=== PATIENT | female | born 1965 | race Caucasian/White ===

== ENCOUNTER → 2017-02-20 | Outpatient (CLI) | payer BC, SELFPAY | PROVIDERS: Family Provider Nurse Practitioner; Visit Provider Nurse Practitioner | DX: R00.2 Palpitations (principal) | CPT/HCPCS: 93225; 93226 ==

== ENCOUNTER → 2017-03-01 13:22 | Outpatient (CLI) | payer BC, SELFPAY ==
--- NOTE | 2017-03-01 | US_ITS ---
MM DIG MAMM DX UNILAT LT CAD, US BREAST LT COMPLETE COMPARISON: 02/01/2017, 01/30/2016, 07/13/2014 INDICATION: Follow-up abnormal mammogram ORDERING PHYSICIAN: Ignacio Glass MD PATIENT AGE: 51 years TECHNIQUE: Problem-solving views performed along with left breast ultrasound FINDINGS: Average fibroglandular tissue. Asymmetric density in the medial aspect of the left breast noted on a few of the images including spot compression view but is less discrete on the rolled views and overall not felt to be significantly changed compared to 07/13/2014 and 01/30/2016 probably related to asymmetric fibroglandular tissue. The lesion is not demonstrated in the orthogonal plane and is not identified by ultrasound. LEFT BREAST ULTRASOUND: No solid or cystic lesion evident. Small nodes are present in the axilla. IMPRESSION: Probably benign findings. Asymmetric density may correspond to asymmetric fibroglandular tissue. BI-RADS Category: 3 Benign Finding Short Term Follow-up RECOMMENDED FOLLOW-UP: 6M - 6 MONTH FOLLOW-UP (A letter has been sent to the patient regarding results of the study.)
== END ==
PROVIDERS: Family Provider Nurse Practitioner; PCP Family Medicine; Visit Provider Nurse Practitioner Obstetrics & Gynecology
DX: R92.2 Inconclusive mammogram (principal)
CPT/HCPCS: 19083; 76641; 77065

== ENCOUNTER → 2017-05-20 08:28 | Outpatient (CLI) | payer BC, SELFPAY ==
[2017-05-20 11:04] LABS: Blood Urea Nitrogen 16 mg/dL (7-18); Creatinine,Serum 0.72 mg/dL (0.55-1.02); Estimated Glomerular Filt Rate 86 ml/min (>60); GFR (African American) 104 ML/MIN (>60)
== END ==
PROVIDERS: Visit Provider Nurse Practitioner
DX: G44.52 New daily persistent headache (NDPH) (principal)
CPT/HCPCS: 36415; 82565; 84520

== ENCOUNTER → 2018-04-07 15:08 | Outpatient (POV) | payer BC, SELFPAY | PROVIDERS: Visit Provider Nurse Practitioner Acute Care | DX: Z00.00 Encounter for general adult medical examination without abnormal findings (principal) ==

== ENCOUNTER → 2018-05-08 09:31 | Outpatient (CLI) | payer BC, SELFPAY ==
[2018-05-08 11:14] LABS: Basophils % 0.8 % (0.1-2.0); Eosinophils # 0.2 K/mm3 (0.0-0.4); Eosinophils % 4.6 % (0.1-12.0); Hematocrit 44.7 % (37.0-47.0); Lymphocytes # 1.6 K/mm3 (0.7-4.5); Lymphocytes % 34.6 % (10-50); Mean Corpuscular HGB Conc 33.5 g/dL (31.8-35.4); Mean Corpuscular Volume 92.4 fl (81-99); Monocytes # 0.2 K/mm3 (0.1-1.0); Monocytes % 5.1 % (1.7-9.3); Neutrophils # 2.5 K/mm3 (1.8-7.8); Platelet Count 262 K/mm3 (142-424); Red Blood Count 4.83 M/mm3 (4.20-5.40); Red Cell Distribution Width 13.7 % (11.5-17.5); White Blood Count 4.6 K/mm3 (4.8-10.8)
[2018-05-08 11:28] LABS: Alanine Aminotransferase 29 U/L (12-78); Albumin Level 4.1 gm/dL (3.4-5.0); Albumin/Globulin Ratio 1.2 (1.1-1.8); Alkaline Phosphatase 92 U/L (46-116); Anion Gap 15.6 mEq/L (5-15); Aspartate Amino Transferase 25 U/L (15-37); Bilirubin,Total 0.5 mg/dL (0.2-1.0); Blood Urea Nitrogen 13 mg/dL (7-18); Calcium 10.2 mg/dL (8.5-10.1); Carbon Dioxide 29 mmol/L (21.0-32.0); Chloride 102 mmol/L (98-107); Chol/HDL Ratio 3.6 (1-3.5); Cholesterol 237 mg/dL (140-200); Creatinine,Serum 0.68 mg/dL (0.55-1.02); Estimated Glomerular Filt Rate 91 ml/min (>60); GFR (African American) 110 ML/MIN (>60); Globulin 3.3 gm/dl (1.3-3.2); Glucose 95 mg/dL (74-106); HDL Cholesterol 65 mg/dL (29-89); LDL Cholesterol 156 mg/dL (0-130); Potassium 3.6 mmoL/L (3.5-5.1); Sodium 143 mmol/L (136-145); Total Protein,Serum 7.4 gm/dL (6.4-8.2); Triglycerides 78 mg/dL (30-200); VLDL Cholesterol 16 mg/dL (0-40)
== END ==
PROVIDERS: Visit Provider Nurse Practitioner Obstetrics & Gynecology
DX: Z01.419 Encounter for gynecological examination (general) (routine) without abnormal findings (principal)
CPT/HCPCS: 36415; 80053; 80061; 85025

== ENCOUNTER → 2018-05-15 14:39 | Outpatient (CLI) | payer BC, SELFPAY | PROVIDERS: PCP Nurse Practitioner; Visit Provider Nurse Practitioner | DX: G47.33 Obstructive sleep apnea (adult) (pediatric) (principal); I10 Essential (primary) hypertension; R06.83 Snoring; G47.10 Hypersomnia, unspecified | CPT/HCPCS: 95806 ==

== ENCOUNTER → 2018-05-27 10:37 | Outpatient (CLI) | payer BC, SELFPAY ==
--- NOTE | 2018-05-27 10:38 | MM_ITS ---
MM Dig screening mamm BI w/CAD CAD Screening COMPARISON: Additional views left breast 03/01/2017 and digital mammograms with CAD 02/01/2017 INDICATION: There is no personal or family history of breast cancer TECHNIQUE: Standard CC and MLO images were obtained. R2 CAD reviewed. FINDINGS: Prominent diffuse somewhat heterogenic fibroglandular densities are seen throughout both breasts. There is a well-defined metallic device projecting over the upper inner quadrant left breast. There is no suspicious lesion and no suspicious microcalcifications. There are small nodes in both axilla. IMPRESSION: Moderate diffuse breast density with no suspicious lesion seen BI-RADS Category: 2 Benign Finding(s) RECOMMENDED FOLLOW-UP: 1YR - 1 YEAR FOLLOW-UP (A letter has been sent to the patient regarding results of the study.)
== END ==
PROVIDERS: PCP Family Medicine; Visit Provider Nurse Practitioner Obstetrics & Gynecology
DX: Z01.419 Encounter for gynecological examination (general) (routine) without abnormal findings (principal); Z12.31 Encounter for screening mammogram for malignant neoplasm of breast
CPT/HCPCS: 77067

== ENCOUNTER → 2019-01-09 08:33 | Outpatient (CLI) | payer BC, SELFPAY ==
--- NOTE | 2019-01-09 08:35 | US_ITS ---
PROCEDURE: US ABDOMEN COMPLETE CLINICAL INDICATION: luq pain Left upper quadrant pain COMPARISON: No exams were available for comparison FINDINGS: PANCREAS: Unremarkable. No obvious mass or abnormal fluid collection. No ductal dilatation LIVER: No focal liver lesions demonstrated. Homogeneous echogenicity. No intrahepatic biliary ductal dilatation evident. There is appropriate direction of blood flow within a non dilated portal vein RIGHT KIDNEY: Unremarkable. Normal size and echogenicity. No hydronephrosis LEFT KIDNEY: Unremarkable. Normal size and echogenicity. No hydronephrosis GALLBLADDER: No gallstones, gallbladder wall thickening, pericholecystic fluid, or biliary dilatation. Small amount of sludge is present in the gallbladder. AORTA: No evidence of aneurysmal dilatation. SPLEEN: Unremarkable. Normal size and echogenicity ASCITES: None demonstrated. IMPRESSION: Small amount of sludge in the gallbladder of questionable clinical significance otherwise negative Dictated by: Dilshad Cleveland MD 01/09/2019 18:17 Electronically signed by Dilshad Cleveland MD in [place] 01/09/2019 18:17
== END ==
PROVIDERS: PCP Nurse Practitioner; Visit Provider Nurse Practitioner
DX: R10.12 Left upper quadrant pain (principal)
CPT/HCPCS: 76700

== ENCOUNTER → 2019-02-03 10:28 | Outpatient (CLI) | payer BC, SELFPAY ==
--- NOTE | 2019-02-03 10:35 | NM_ITS ---
PROCEDURE: NM HEPATOBILIARY W PHARM CLINICAL INDICATION: SLUDGE IN GB Upper abdominal pain COMPARISON: None TECHNIQUE: Routine exam was performed after 8.75 millicuries technetium 99 M Choletec administration DOSE: . 1.2 mgc CCK administration FINDINGS: Homogeneous activity is present within the hepatic parenchyma. Activity is present in the gallbladder by 20 minutes. Activity is present in the small bowel by 50 minutes. The gallbladder ejection fraction is calculated to be 48 percent. CCK-The patient did not report pain or other symptoms during CCK infusion. IMPRESSION: Exam within normal limits. Gallbladder ejection fraction 48 percent. Dictated by: Juan Estrada 02/03/2019 14:41 Electronically signed by Juan Estrada in [place] 02/03/2019 14:41
--- NOTE | 2019-02-03 10:53 | HMH.ITSHM ---
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 []PLECANATIDE OMEPRAZOLE LISINOPRIL DIAZEPAM BISOPROLOL
== END ==
PROVIDERS: PCP Nurse Practitioner; Visit Provider Nurse Practitioner
DX: K82.8 Other specified diseases of gallbladder (principal)
CPT/HCPCS: 78227; A9537; J2805

== ENCOUNTER 2019-10-08 07:28 | Day surgery (SDC) | payer BC, SELFPAY ==
[2019-10-08 07:34] VITALS: BMI 22.1
[2019-10-08 07:51] VITALS: BP 131/82; PULSE 78; RESP 16; O2SAT 98
[2019-10-08 07:54] VITALS: PULSE 73
[2019-10-08 08:24] VITALS: BP 153/84; PULSE 68; RESP 16; TEMP 36.5; O2SAT 97
[2019-10-08 08:27] LABS: Coronavirus 19 IgM Antibody Negative (Negative)
[2019-10-08 08:29] LABS: Coronavirus 19 IgG Antibody Positive (Negative)
[2019-10-08 08:31] VITALS: PULSE 77
--- NOTE | 2019-10-15 10:29 | P.PCN_ITS ---
[facility] Procedure Note Procedure Note:: Due to the loop recorder at end-of-life, patient wish the device to be removed. Patient was brought to the [facility] as an outpatient. After locating the loop recorder, 1% lidocaine was used for anesthetizing the area. #10 scalpel was used to dissect down to the loop recorder and hemostats were used to remove the device successfully. The edges of the incision were approximated and surgical glue was used to maintain closure along with Steri-Strips and a pressure dressing. Patient tolerated procedure without complications. Routine postop care Patient will follow-up in our office in 1 week.
== END 2019-10-08 08:34 | disposition hospice, home (50) ==
LOC: CATHLAB 07:30
PROVIDERS: PCP Nurse Practitioner; Visit Provider Internal Medicine
DX: Z45.09 Encounter for adjustment and management of other cardiac device (principal)
CPT/HCPCS: 33286; 86328

== ENCOUNTER → 2020-02-22 14:19 | Outpatient (CLI) | payer BC, SELFPAY ==
[2020-02-22 15:09] LABS: Chloride 97 mmol/L (98-107)
[2020-02-22 15:10] LABS: Potassium 4.1 mmoL/L (3.5-5.1); Sodium 137 mmol/L (136-145)
[2020-02-22 15:13] LABS: Anion Gap 12.1 mEq/L (5-15); Blood Urea Nitrogen 13 mg/dl (7-17); Calcium 10.4 mg/dl (8.4-10.2); Carbon Dioxide 32 mmol/L (22.0-30.0); Estimated Glomerular Filt Rate 58 ml/min (>60); GFR (African American) 70 ML/MIN (>60); Glucose 112 mg/dl (74-100)
== END ==
PROVIDERS: Visit Provider Physician Assistant
DX: E78.2 Mixed hyperlipidemia (principal); I10 Essential (primary) hypertension
CPT/HCPCS: 36415; 80048

== ENCOUNTER → 2020-07-15 08:30 | Outpatient (CLI) | payer BC, SELFPAY ==
[2020-07-15 09:08] LABS: Basophils % 0.6 % (0.1-2.0); Eosinophils # 0.2 K/mm3 (0.0-0.4); Eosinophils % 3.4 % (0.1-12.0); Hematocrit 40.1 % (37.0-47.0); Hemoglobin 13.6 g/dL (12.2-16.2); Lymphocytes # 1.9 K/mm3 (0.7-4.5); Lymphocytes % 30.7 % (10-50); Mean Corpuscular Volume 91.2 fl (81-99); Mean Platelet Volume 7.1 fl (7.4-10.4); Monocytes # 0.3 K/mm3 (0.1-1.0); Monocytes % 5.5 % (1.7-9.3); Neutrophils # 3.7 K/mm3 (1.8-7.8); Neutrophils % 59.8 % (37.0-80.0); Platelet Count 241 K/mm3 (142-424); Red Cell Distribution Width 13.1 % (11.5-17.5); White Blood Count 6.1 K/mm3 (4.8-10.8)
[2020-07-15 09:32] LABS: Chloride 105 mmol/L (98-107)
[2020-07-15 09:33] LABS: Potassium 3.7 mmoL/L (3.5-5.1); Sodium 140 mmol/L (136-145)
[2020-07-15 09:35] LABS: Alanine Aminotransferase 18 U/L (12-78); Albumin Level 4.8 g/dl (3.5-5.0); Albumin/Globulin Ratio 1.9 (1.1-1.8); Alkaline Phosphatase 104 U/L (38-126); Anion Gap 12.7 mEq/L (5-15); Aspartate Amino Transferase 31 U/L (14-36); Bilirubin,Total 0.7 mg/dl (0.2-1.3); Blood Urea Nitrogen 13 mg/dl (7-17); Calcium 10.1 mg/dl (8.4-10.2); Carbon Dioxide 26 mmol/L (22.0-30.0); Cholesterol 221 mg/dl (140-200); Estimated Glomerular Filt Rate 75 ml/min (>60); GFR (African American) 91 ML/MIN (>60); Globulin 2.5 g/dL (1.3-3.2); Glucose 93 mg/dl (74-100); Total Protein,Serum 7.3 g/dl (6.3-8.2); Triglycerides 268 mg/dl (30-150); VLDL Cholesterol 54 mg/dL (0-40)
[2020-07-15 09:36] LABS: Chol/HDL Ratio 3.6 (1-3.5); HDL Cholesterol 62 mg/dl (40-60)
[2020-07-15 09:47] LABS: Direct LDL Cholesterol 113.27 mg/dL (100-129)
== END ==
PROVIDERS: Visit Provider Nurse Practitioner Obstetrics & Gynecology
DX: Z01.419 Encounter for gynecological examination (general) (routine) without abnormal findings (principal)
CPT/HCPCS: 36415; 80053; 80061; 85025

== ENCOUNTER → 2020-08-24 13:01 | Outpatient (CLI) | payer BC, SELFPAY ==
--- NOTE | 2020-08-24 13:01 | MM_ITS ---
PROCEDURE INFORMATION: Exam: MG Screening 3D Mammography Exam date and time: 08/24/2020 1:01 PM Age: 54 years old Clinical indication: Routine screening mammogram TECHNIQUE: Imaging protocol: Screening tomosynthesis and 2D mammography including computer-aided detection (CAD) when performed. COMPARISON: 1. MG SCBI MM Dig screening mamm BI w/CAD 05/27/2018 10:52 AM 2. MG DXLT MM Dig mamm DX unilat LT CAD 03/01/2017 1:37 PM FINDINGS: MAMMOGRAPHY: Breast composition: The breast tissue is composed of scattered areas of fibroglandular density. Mass: None. Architectural distortion: None. Calcifications: No suspicious calcifications. Asymmetric density: None. Skin thickening: None. Axillary adenopathy: None. IMPRESSION: No mammographic evidence of malignancy. Annual screening is recommended unless otherwise clinically indicated. ASSESSMENT: BI-RADS Category 1: Negative
== END ==
PROVIDERS: PCP Family Medicine; Visit Provider Nurse Practitioner Obstetrics & Gynecology
DX: Z12.31 Encounter for screening mammogram for malignant neoplasm of breast (principal)
CPT/HCPCS: 77063; 77067

== ENCOUNTER → 2020-09-05 13:26 | Outpatient (POV) | payer BC, SELFPAY | PROVIDERS: Visit Provider Nurse Practitioner Family | DX: Z00.00 Encounter for general adult medical examination without abnormal findings (principal) ==

== ENCOUNTER → 2020-10-19 15:20 | Outpatient (CLI) | payer BC, SELFPAY ==
--- NOTE | 2020-10-19 15:23 | US_ITS ---
PROCEDURE: US TRANSVAGINAL CLINICAL INDICATION: LOWER ABD PAIN,ABN UTERINE BLEEDING COMPARISON: No exams were available for comparison FINDINGS: UTERUS: 9cm x 4cmx 3cm with a combined endometrial thickness of 4.4mm LEFT OVARY: [id number] with a volume of 1.3ml. RIGHT OVARY: [id number] with a volume of 2.2ml. IMPRESSION: Negative pelvic ultrasound Dictated by: Dilshad Cleveland MD 10/19/2020 17:55 Dilshad Cleveland MD in [place] 10/19/2020 17:55
== END ==
LOC: RAD 15:20
PROVIDERS: PCP Family Medicine; Visit Provider Nurse Practitioner Family
DX: R10.30 Lower abdominal pain, unspecified (principal); N93.9 Abnormal uterine and vaginal bleeding, unspecified
CPT/HCPCS: 76830

== ENCOUNTER → 2020-12-01 12:22 | Outpatient (CLI) | payer BC, SELFPAY ==
[2020-12-01 13:14] LABS: NT Pro Brain Natriuretic Pep. 596 pg/mL (0-125)
[2020-12-01 15:18] LABS: Chloride 105 mmol/L (98-107); Potassium 3.9 mmoL/L (3.5-5.1); Sodium 142 mmol/L (136-145)
[2020-12-01 15:21] LABS: Anion Gap 12.9 mEq/L (5-15); Blood Urea Nitrogen 11 mg/dl (7-17); Calcium 9.6 mg/dl (8.4-10.2); Carbon Dioxide 28 mmol/L (22.0-30.0); Estimated Glomerular Filt Rate 87 ml/min (>60); GFR (African American) 106 ML/MIN (>60); Glucose 103 mg/dl (74-100)
== END ==
PROVIDERS: Physician Assistant; Visit Provider Internal Medicine Cardiovascular Disease
DX: R06.00 Dyspnea, unspecified (principal); I10 Essential (primary) hypertension; K21.9 Gastro-esophageal reflux disease without esophagitis; R53.83 Other fatigue; R60.9 Edema, unspecified
CPT/HCPCS: 36415; 80048; 83880

== ENCOUNTER → 2020-12-09 07:27 | Outpatient (CLI) | payer BC, SELFPAY ==
[2020-12-09 08:28] LABS: Chloride 100 mmol/L (98-107); Potassium 3.9 mmoL/L (3.5-5.1); Sodium 137 mmol/L (136-145)
[2020-12-09 08:31] LABS: Blood Urea Nitrogen 12 mg/dl (7-17); Estimated Glomerular Filt Rate 87 ml/min (>60); GFR (African American) 106 ML/MIN (>60)
[2020-12-09 08:32] LABS: Anion Gap 13.9 mEq/L (5-15); Calcium 9.5 mg/dl (8.4-10.2); Carbon Dioxide 27 mmol/L (22.0-30.0); Glucose 100 mg/dl (74-100)
[2020-12-09 08:41] LABS: NT Pro Brain Natriuretic Pep. 245 pg/mL (0-125)
== END ==
PROVIDERS: Visit Provider Internal Medicine Cardiovascular Disease
DX: R06.00 Dyspnea, unspecified (principal); I10 Essential (primary) hypertension; R53.83 Other fatigue; K21.9 Gastro-esophageal reflux disease without esophagitis
CPT/HCPCS: 36415; 80048; 83880

== ENCOUNTER → 2020-12-14 15:25 | Outpatient (CLI) | payer BC, SELFPAY ==
--- NOTE | 2020-12-14 15:26 | CA_ITS ---
APPROVED REPORT EXAM: Comprehensive 2D, Doppler, and color-flow Echocardiogram Options Trader: Nadiya Sheffield RT(R) Ht: 5 ft 2 in Wt: 135lbs BSA: 1.62 BP: 127/76 mmHg Indications: sob, smoker 2D Dimensions LVOT 2.03 cm (M/F) 1.5-2.5 M-Mode Dimensions RVDd 2.15 cm (0.9-2.6) LA Diam 2.39 cm (1.9-4.0) LVDd 5.03 cm (3.5-5.7) Ao Diam 2.89 cm (2.0-3.7) LVDs 4.12 cm (3.5-5.7) IVSd 1.11 cm (0.6-1.1) PWd 0.84 cm (0.6-1.1) EF (Teich) 37.40% FS 18.10% EDV (Teich) 119.90 mL ESV (Teich) 75.10 mL LV Diastology E Decel Time 190.00 (160-240 msec) E/A Ratio 0.6 MED E' 3.80 (< 7 cm/sec) E'/MED E' Ratio 13.18 (>14) LAT E' 6.40 (<10 cm/sec) E/LAT E' Ratio 7.83 (>14) Mitral Valve MV E Max José. 50.00 (40-130 cm/s) MV A Velocity 89.00 (40-130 cm/s) E/A Ratio 0.56 MV Decel. Time 190.00 (160-240 ms) MV PHT 56.00 ms Tricuspid Valve TR P. Velocity 224.00 cm/s RAP Estimate 10.00 mmHg RVSP 30.10 mmHg Left Ventricle Mildly enlarged, left ventricle is normal size, left ventricle wall thickness is upper limit of normal, visually estimated ejection fraction 55% with no regional wall motion abnormality, grade 1 diastolic dysfunction seen without tissue Doppler evidence of raise left atrial pressure. Right Ventricle Right atrium and right ventricle are normal size and contractility, the coronary sinus is dilated, raising the concerns for presence of left-sided persistent SVC. Aortic Valve Aortic valve is minimally thickened and fibrosed, there is no aortic stenosis or aortic insufficiency. Mitral Valve Mitral valve is grossly normal, there is trace mitral regurgitation. Tricuspid Valve Tricuspid valve grossly normal, there is trace tricuspid regurgitation, tricuspid regurgitation jet velocity is inadequate for calculation of the right ventricular systolic pressure. Pulmonic Valve Pulmonic valve is poorly visualized. Great Vessels Aortic root is normal size. Inferior vena cava is normal size with normal inspiratory collapse. Pericardium No significant pericardial effusion noted. Conclusion 1. Normal left ventricular size, preserved left ventricular systolic function, visually estimated ejection fraction 55% with no regional wall motion abnormality, grade 1 diastolic dysfunction seen without tissue Doppler evidence of raise left atrial pressure. 2. Dilated coronary sinus, raising the concerns for presence of persistent left-sided SVC. 3. No significant pericardial effusion 4. Inferior vena cava is normal size with normal inspiratory collapse. Electronically signed by : Serge Brunson MD 12/15/2020 16:21:08
== END ==
LOC: RT 15:26
PROVIDERS: PCP Family Medicine; Visit Provider Internal Medicine Cardiovascular Disease
DX: R06.00 Dyspnea, unspecified (principal); I10 Essential (primary) hypertension; K21.9 Gastro-esophageal reflux disease without esophagitis; R53.83 Other fatigue
CPT/HCPCS: 93306

== ENCOUNTER → 2021-01-10 13:00 | Outpatient (CLI) | payer BC, SELFPAY ==
--- NOTE | 2021-01-10 13:01 | CA_ITS ---
APPROVED REPORT EXAM: Comprehensive 2D, Doppler, and color-flow Echocardiogram Lease Operator: Rocio Ying, KRISTEN, RVS Ht: 5 ft 2 in Wt: 146lbs BSA: 1.67 BP: 000/00 mmHg Indications: SOA, Coronary sinus dilation. Limited echo with bubble to rule ot persistant SVC Echo Enhancing Agent Agent(s) / Amount(s) Used: Agitated Saline 30 cc Comments: Negative for shunting of the coronary sinus. Conclusion 1. Limited echocardiogram was obtained with bubble study. 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 2. No significant pericardial effusion noted. Electronically signed by : Serge Brunson MD 01/10/2021 19:22:40
== END ==
LOC: RT 13:01
PROVIDERS: PCP Family Medicine; Visit Provider Urology
DX: I44.7 Left bundle-branch block, unspecified (principal); Q26.8 Other congenital malformations of great veins; I10 Essential (primary) hypertension
CPT/HCPCS: 93306

== ENCOUNTER → 2021-08-17 10:33 | Outpatient (CLI) | payer BC, SELFPAY ==
[2021-08-17 11:08] LABS: Alanine Aminotransferase 22 U/L (12-78); Albumin Level 4.2 g/dl (3.5-5.0); Alkaline Phosphatase 77 U/L (38-126); Aspartate Amino Transferase 33 U/L (14-36); Bilirubin,Indirect 0.2 mg/dL (0.0-0.9); Bilirubin,Total 0.2 mg/dl (0.2-1.3); Bilirubin,Unconjugated 0.6 mg/dL (0.0-1.1); Chol/HDL Ratio 3.9 (1-3.5); Cholesterol 207 mg/dl (140-200); HDL Cholesterol 53 mg/dl (40-60); Total Protein,Serum 6.8 g/dl (6.3-8.2); Triglycerides 181 mg/dl (30-150); VLDL Cholesterol 36 mg/dL (0-40)
== END ==
PROVIDERS: PCP Family Medicine; Visit Provider Nurse Practitioner
DX: I11.9 Hypertensive heart disease without heart failure (principal); E11.9 Type 2 diabetes mellitus without complications
CPT/HCPCS: 36415; 80061; 80076

== ENCOUNTER 2021-08-19 10:11 | Emergency (ER) | payer BC, SELFPAY ==
[2021-08-19 10:45] VITALS: BP 126/81; PULSE 85; RESP 19; TEMP 36.8; O2SAT 97; BMI 22.6
[2021-08-19 10:54] LABS: Apearance,Urine Cloudy (Clear); Bilirubin,Urine Negative (Negative); Blood, Urine 3+ (Negative); Color,Urine Dark Yellow (Yellow); Glucose,Urine (UA) Negative (Negative); Ketones,Urine Negative (Negative); Protein,Urine 1+ (Negative); Specific Gravity, Urine 1.025 (1.005-1.030); UTC Leukocyte Esterase,Urine 2+ (Negative); UTC Nitrate,Urine Negative (Negative); Urobilinogen,Urine 0.2 EU/dl (0.2)
--- NOTE | 2021-08-19 11:03 | HMH.EDUTC ---
[facility] [place] Clinical Impression: UTI (urinary tract infection) Qualifiers: Urinary tract infection type: acute cystitis Hematuria presence: with hematuria Qualified Code(s): N30.01 - Acute cystitis with hematuria Disposition: Home, Self-Care Condition on Discharge: Good Instructions: DI for Urinary Tract Infection (UTI) Additional Instructions: Increase fluids, water and not soda or tea. Can drink cranberry juice or cranberry extract. White front to back Wear cotton underwear Empty bladder after intercourse Start antibiotics immediately and make sure you take the full course although you may start to see improvement over the next 48 hours. You can eat yogurt or take probiotics to decrease diarrhea or yeast infection caused by the antibiotic Be sure to follow-up anytime for new or worsening symptoms in 48 hours for wound urine culture results be sure to let you PCP no recent urine for culture so they can request records and ensure that you have appropriate antibiotic if you are not getting better or getting worse. If symptoms worsen or do not improve return or be seen in the ER. Follow-up with primary care this week. Prescriptions: cephALEXin [Cephalexin 500mg Tab] 500 mg PO BID 7 Days #14 tab Transmission Status: Pending to [email or web address] Referrals: Dewayne Lindo MD [Primary Care Provider] - Time of Disposition: 11:08 Medical Decision Making - Devin Inquiry Pt receiving controlled substance: No Vital Signs: 08/19/21 10:45 Temperature 98.2 F Temperature Source Oral Pulse Rate [Right Brachial] 85 Respiratory Rate 19 Blood Pressure [Right Arm] 126/81 Blood Pressure Mean [Right Arm] 96 Blood Pressure Source [Right Arm] Automatic Cuff Blood Pressure Position [Right Arm] Sitting 02 Sat by Pulse Oximetry 97 Oxygen Delivery Method Room Air - Lab Data Lab Results 08/19/21 10:53: Urine Color Dark yellow, Urine Appearance Cloudy, Urine pH 7.0, Ur Specific [place] 1.025, Urine Protein 1+, Urine Glucose (UA) Negative, Urine Ketones Negative, Urine Blood 3+, Urine Nitrate Negative, Urine Bilirubin Negative, Urine Urobilinogen 0.2, Ur Leukocyte Esterase 2+ A Orders (Tests/Meds): ORDERS Category Date Time Status Urine Culture Stat Micro 08/19/21 10:40 Received [facility] [place] - General Chief complaint: [facility] Stated complaint: blood in urine,painful Time Seen by Provider: 08/19/21 11:03 Mode of Arrival: Ambulatory Source of Information: Patient Limitations: No Limitations Description of Symptoms (Recalled from Triage Doc. by RN): PATIENT C/O STOMACH PAIN AND BLOOD IN URINE X 3 DAYS HEENT Symptoms (Recalled from RN notes): No Resp Symptoms (Recalled from RN notes): No Skin Symptoms (Recalled from RN notes): No MS Symptoms (Recalled from RN notes): No Functional Status (Recalled from RN notes): WNL - History of Present Illness Provider Complaint: 55 yr old female presents for pelvic pain and pressure,freq,hes,urgency,blood in urine and burning since yesterday - Related Data Home Medications Medication Instructions Recorded Confirmed diazepam 5 mg tablet 5 mg PO DAILY PRN tab 07/30/17 08/16/21 sucralfate 1 gram tablet 1 g PO QID tab 12/01/20 08/16/21 Previous Rx's Medication Instructions Recorded bisoprolol fumarate 10 mg tablet See Rx Instructions .ROUTE 04/18/21 .COMPLEX #30 tab spironolactone 25 mg tablet See Rx Instructions .ROUTE 05/15/21 .COMPLEX #30 tab irbesartan 150 See Rx Instructions .ROUTE 06/12/21 mg-hydrochlorothiazide 12.5 mg .COMPLEX #60 tab tablet omeprazole 40 mg capsule,delayed See Rx Instructions .ROUTE 07/11/21 release .COMPLEX #30 cap cephALEXin [Cephalexin 500mg Tab] 500 mg PO BID 7 Days #14 tab 08/19/21 Allergies Allergy/AdvReac Type Severity Reaction Status Date / Time latex Allergy Unknown Unknown Verified 08/16/21 13:49 allergy reaction - Worker's Comp Is this a Worker's Comp case?: No H History
[2021-08-19 11:06] VITALS: BP 126/81; PULSE 85; RESP 19; TEMP 36.8; O2SAT 97
== END 2021-08-19 11:11 | disposition home or self-care (01) ==
PROVIDERS: Emergency Provider Nurse Practitioner Family; PCP Family Medicine
DX: N30.01 Acute cystitis with hematuria (principal); B96.89 Other specified bacterial agents as the cause of diseases classified elsewhere; Z87.891 Personal history of nicotine dependence
CPT/HCPCS: 81003; 87086; 87088; 87186; 99212; G0463

== ENCOUNTER 2021-08-31 03:16 | Emergency (ER) | payer BC, OTHER, SELFPAY ==
[2021-08-31 03:17] VITALS: BP 144/84; PULSE 78; RESP 16; TEMP 36.7; O2SAT 98; BMI 22.6
[2021-08-31 03:23] VITALS: BMI 20.9
--- NOTE | 2021-08-31 03:29 | CT_ITS ---
PROCEDURE INFORMATION: Exam: CT Abdomen And Pelvis With Contrast Exam date and time: 08/31/2021 4:23 AM Age: 55 years old Clinical indication: Abdominal pain; Localized; Right lower quadrant (rlq); Additional info: Rlq pain TECHNIQUE: Imaging protocol: Computed tomography of the abdomen and pelvis with contrast. Radiation optimization: All CT scans at this facility use at least one of these dose optimization techniques: automated exposure control; mA and/or kV adjustment per patient size (includes targeted exams where dose is matched to clinical indication); or iterative reconstruction. Contrast material: ISOVUE; Contrast volume: 75 ml; Contrast route: IV; COMPARISON: US ABDOMEN COMPLETE 01/09/2019 8:32 AM FINDINGS: Heart: The coronary sinus is markedly distended. Liver: Normal. No mass. Gallbladder and bile ducts: Normal. No calcified stones. No ductal dilation. Pancreas: Normal. No ductal dilation. Spleen: Normal. No splenomegaly. Adrenal glands: Normal. No mass. Kidneys and ureters: Normal. No hydronephrosis. Stomach and bowel: Unremarkable. No obstruction. No mucosal thickening. Appendix: No evidence of appendicitis. Intraperitoneal space: Unremarkable. No free air. No significant fluid collection. Vasculature: This may be secondary to a left-sided superior vena cava. There is plaque or other low-attenuation filling defect within the superior mesenteric artery (these see series 3, image 38 through 42. Lymph nodes: Unremarkable. No enlarged lymph nodes. Urinary bladder: Unremarkable as visualized. Reproductive: Unremarkable as visualized. Bones/joints: Unremarkable. No acute fracture. Soft tissues: Unremarkable. IMPRESSION: 1. 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 Likely atherosclerotic in nature. 2. No other acute process or mass identified.
[2021-08-31 03:48] LABS: Basophils % 0.3 % (0.1-2.0); Eosinophils # 0.2 K/mm3 (0.0-0.4); Hematocrit 36.9 % (37.0-47.0); Hemoglobin 12.8 g/dL (12.2-16.2); Lymphocytes # 1.8 K/mm3 (0.7-4.5); Lymphocytes % 17.9 % (10-50); Mean Corpuscular HGB Conc 34.6 g/dL (31.8-35.4); Mean Corpuscular Hemoglobin 31.8 pg (27.0-31.2); Mean Corpuscular Volume 91.8 fl (81-99); Mean Platelet Volume 6.9 fl (7.4-10.4); Monocytes # 0.5 K/mm3 (0.1-1.0); Monocytes % 5.3 % (1.7-9.3); Neutrophils # 7.4 K/mm3 (1.8-7.8); Neutrophils % 74.5 % (37.0-80.0); Platelet Count 248 K/mm3 (142-424); Red Blood Count 4.02 M/mm3 (4.20-5.40); Red Cell Distribution Width 12.7 % (11.5-17.5)
[2021-08-31 03:55] LABS: Chloride 93 mmol/L (98-107); Potassium 3.3 mmoL/L (3.5-5.1); Sodium 128 mmol/L (136-145)
[2021-08-31 03:57] LABS: Amylase 82 U/L (30-110)
[2021-08-31 03:58] LABS: Alanine Aminotransferase 23 U/L (12-78); Albumin Level 4.7 g/dl (3.5-5.0); Albumin/Globulin Ratio 1.7 (1.1-1.8); Alkaline Phosphatase 86 U/L (38-126); Anion Gap 11.3 mEq/L (5-15); Aspartate Amino Transferase 36 U/L (14-36); Bilirubin,Total 0.6 mg/dl (0.2-1.3); Blood Urea Nitrogen 14 mg/dl (7-17); Calcium 9.9 mg/dl (8.4-10.2); Carbon Dioxide 27 mmol/L (22.0-30.0); Creatinine Clearance Estimated 67 mL/min (50-200); Estimated Glomerular Filt Rate 65 ml/min (>60); GFR (African American) 79 ML/MIN (>60); Globulin 2.8 g/dL (1.3-3.2); Glucose 125 mg/dl (74-100); Lipase 208 U/L (23-300); Total Protein,Serum 7.5 g/dl (6.3-8.2)
[2021-08-31 04:04] LABS: C-Reactive Protein 31.1 mg/L (0-4)
[2021-08-31 04:09] LABS: Microscopic, Urine URINE MICROSCOPIC (MICROSCOPIC)
[2021-08-31 04:10] LABS: Bilirubin,Urine Negative (Negative); Blood, Urine 3+ (Negative); Color,Urine YELLOW (Yellow); Glucose,Urine (UA) Negative (Negative); Ketones,Urine Negative (Negative); Leukocyte Esterase,Urine 1+ (Negative); Nitrate,Urine Negative (Negative); Protein,Urine 2+ (Negative); Urobilinogen,Urine 0.2 EU/dl (0.2)
[2021-08-31 04:14] LABS: Appearance,Urine Slightly Cloudy (Clear)
[2021-08-31 04:17] LABS: Procalcitonin 0.043 ng/mL (0.0-2.0)
--- NOTE | 2021-08-31 04:18 | HMH.EDNVD ---
ED Disposition Clinical Impression: UTI (urinary tract infection) Qualifiers: Urinary tract infection type: site unspecified Hematuria presence: without hematuria Qualified Code(s): N39.0 - Urinary tract infection, site not specified Disposition: Home, Self-Care Condition on Discharge: Good Instructions: DI for Urinary Tract Infection (UTI) Additional Instructions: use meds and call pcp for urine culture results Prescriptions: levoFLOXacin [Levaquin 500mg tab] 500 mg PO DAILY #7 tab Transmission Status: Pending to [facility] Pharm[facility] Referrals: Dewayne Lindo MD [Primary Care Provider] - - Critical Care Critical Care Time: No Attestation: On 08/31/21, the high probability of a clinically significant, sudden or life threatening deterioration of the following system(s) required my full and direct attention, intervention and personal management. The time I documented below is in addition to time spent performing reported procedures but includes the following listed in this critical care notation. Medical Decision Making - Medical Records Medical records reviewed: Yes: I reviewed the patient's medical records. - Devin Inquiry Pt receiving controlled substance: No Vital Signs: 08/31/21 03:17 Temperature 98.1 F Temperature Source Oral Pulse Rate [Right] 78 Respiratory Rate 16 Blood Pressure [Right Arm] 144/84 H Blood Pressure Mean [Right Arm] 104 02 Sat by Pulse Oximetry 98 - Lab Data Lab results reviewed: Yes: I reviewed the patient's lab results. Lab Results 08/31/21 03:35: WBC 10.0, RBC 4.02 L, Hgb 12.8, Hct 36.9 L, MCV 91.8, MCH 31.8 H, MCHC 34.6, RDW 12.7, Plt Count 248, MPV 6.9 L, Neut % (Auto) 74.5, Lymph % (Auto) 17.9, [place] % (Auto) 5.3, Eos % (Auto) 2.0, Baso % (Auto) 0.3, Neut # (Auto) 7.4, Lymph # (Auto) 1.8, [place] # (Auto) 0.5, Eos # (Auto) 0.2, Baso # (Auto) 0.0, ESR 21 08/31/21 03:35: Sodium 128 L, Potassium 3.3 L, Chloride 93 L, Carbon Dioxide 27, Anion Gap 11.3, BUN 14, Creatinine 0.90, Estimated Creat Clear 67, Estimated GFR 65, Est GFR ( Amer) 79, Glucose 125 H, Calcium 9.9, Total Bilirubin 0.6, AST 36, ALT 23, Alkaline Phosphatase 86, C-Reactive Protein 31.1 H, Total Protein 7.5, Albumin 4.7, Globulin 2.8, Albumin/Globulin Ratio 1.7, Amylase 82, Procalcitonin 0.043 08/31/21 03:35: Lipase 208 08/31/21 04:00: Urine Color Yellow, Urine Appearance Slightly cloudy, Urine pH 6.0, Ur Specific [place] 1.020, Urine Protein 2+, Urine Glucose (UA) Negative, Urine Ketones Negative, Urine Blood 3+, Urine Nitrate Negative, Urine Bilirubin Negative, Urine Urobilinogen 0.2, Ur Leukocyte Esterase 1+ A, Urine RBC 10-20, Urine WBC 10-20, Ur Squamous Epith Cells 3-5, Urine Bacteria 1+ Result diagrams: 08/31/21 03:35 08/31/21 03:35 Orders (Tests/Meds): ED MEDICATIONS Generic Name Dose Route Start Last Admin Trade Name Freq PRN Reason Stop Dose Admin Sodium Chloride 1,000 mls @ 999 mls/hr 08/31/21 03:30 08/31/21 03:39 Sod Chlor 0.9% 1000ml Bag IV 08/31/21 04:30 999 mls/hr .[id number] MARITZA Administration Discontinued Medications Generic Name Dose Route Start Last Admin Trade Name Freq PRN Reason Stop Dose Admin Iopamidol 75 ml 08/31/21 04:36 08/31/21 04:37 Iopamidol-370 (76%);100ml Bottle IV 08/31/21 04:37 75 ml ONCE ONE Administration Ketorolac Tromethamine 30 mg 08/31/21 03:24 08/31/21 03:39 Ketorolac 30mg/Ml Vial IV 08/31/21 03:25 30 mg ONCE ONE Administration Sodium Chloride 10 ml 08/31/21 04:36 08/31/21 04:37 Sodium Chloride 0.9% 10ml Syr (Rad Only) IV 08/31/21 04:37 10 ml ONCE ONE Administration ORDERS Category Date Time Status Urine Culture Stat Micro 08/31/21 04:00 Received - CT Data CT Scan: Abdomen, Pelvis Time Received: 06:[address] Reviewed: Yes: I have viewed the radiologist's interpretation Preliminary Findings: Abnormal (see report ) Medical Decision Narrative: has stable exam and has ct which showed no def abd pat
--- NOTE | 2021-08-31 04:22 | PC.NURSE ---
Pt gone to RAD
[2021-08-31 04:47] LABS: Bacteria,Urine 1+ /lpf
[2021-08-31 04:47] LABS: Erythrocyte Sedimentation Rate 21 mm/hr (0-30)
[2021-08-31 05:31] VITALS: BP 114/66; PULSE 68; O2SAT 97
--- NOTE | 2021-08-31 05:35 | PC.NURSE ---
call to director of radiology to check on status of reading
[2021-08-31 06:01] VITALS: BP 101/56; PULSE 70; O2SAT 97
[2021-08-31 06:18] VITALS: BP 102/60; PULSE 63; RESP 18; TEMP 36.9; O2SAT 99
== END 2021-08-31 06:28 | disposition home or self-care (01) ==
PROVIDERS: Emergency Provider Emergency Medicine; PCP Family Medicine
DX: N39.0 Urinary tract infection, site not specified (principal); Z79.899 Other long term (current) drug therapy; Z91.040 Latex allergy status; K21.9 Gastro-esophageal reflux disease without esophagitis; E78.5 Hyperlipidemia, unspecified; I10 Essential (primary) hypertension; R00.2 Palpitations; R56.9 Unspecified convulsions
CPT/HCPCS: 74177; 80053; 81001; 82150; 83690; 84145; 85025; 85651; 86140; 87086; 87088; 87186; 96365; 96375; 99284; Q9967

== ENCOUNTER → 2021-12-01 13:05 | Outpatient (CLI) | payer BC, SELFPAY ==
--- NOTE | 2021-12-01 13:06 | MM_ITS ---
PROCEDURE INFORMATION: Exam: MG Bilateral Screening 3D Mammography Exam date and time: 12/01/2021 1:00 PM Age: 56 years old Clinical indication: Screening mammogram. TECHNIQUE: Imaging protocol: Bilateral Screening tomosynthesis and 2D mammography including computer-aided detection (CAD) when performed. COMPARISON: 1. MG MM DIG SCREENING MAMM BI W/CAD 08/24/2020 1:17 PM 2. MG SCBI MM Dig screening mamm BI w/CAD 05/27/2018 10:52 AM 3. MG DXLT MM Dig mamm DX unilat LT CAD 03/01/2017 1:37 PM 4. MG DMSB DIG MAMM-SCREEN TANO W/CAD 02/01/2017 8:48 AM FINDINGS: MAMMOGRAPHY: Breast composition: The breast is heterogeneously dense, which may obscure small masses. Mass: None. Architectural distortion: No new or suspicious architectural distortion. Calcifications: Stable benign-appearing calcifications are present. No new or suspicious cluster of microcalcifications have developed. Asymmetric density: No new or suspicious asymmetric density is present Skin thickening: None. Axillary adenopathy: None. IMPRESSION: No mammographic evidence of malignancy. Recommend annual screening mammography unless otherwise clinically indicated. ASSESSMENT: BI-RADS category 2: Benign
== END ==
PROVIDERS: PCP Family Medicine; Visit Provider Obstetrics & Gynecology
DX: Z12.31 Encounter for screening mammogram for malignant neoplasm of breast (principal)
CPT/HCPCS: 77063; 77067

== ENCOUNTER → 2022-01-08 08:00 | Outpatient (CLI) | payer BC, SELFPAY ==
--- NOTE | 2022-01-08 08:03 | US_ITS ---
FINAL REPORT CLINICAL HISTORY: NAUSEA, UPPER ABD PAIN FINDINGS: ULTRASOUND RIGHT UPPER QUADRANT Sonographic imaging of the right upper quadrant was obtained. The pancreas is partially obscured. The liver is unremarkable. There is a trace amount of sludge within the gallbladder with no evidence of gallstones. There is no gallbladder wall thickening. There is no biliary ductal dilatation. The common duct is normal at 3 mm. Limited images of the right kidney are unremarkable. IMPRESSION: Unremarkable right upper quadrant ultrasound. Reviewed, Interpreted and Dictated by Edy Barksdale MD Transcribed by Mariella Hackett Authenticated and [facility]
== END ==
LOC: RAD 08:00
PROVIDERS: PCP Family Medicine; Visit Provider Nurse Practitioner Family
DX: R10.10 Upper abdominal pain, unspecified (principal); R11.0 Nausea
CPT/HCPCS: 76705

== ENCOUNTER → 2022-01-31 10:27 | Outpatient (CLI) | payer BC, SELFPAY ==
--- NOTE | 2022-01-31 10:32 | NM_ITS ---
FINAL REPORT CLINICAL HISTORY: SLUDGE IN GALLBLADDER 10:50am 7.94 mci tc choletec 1.2 mcg cck no pain with cck FINDINGS: Sequential anterior projection images of the abdomen were obtained after the intravenous injection of 7.94 mCi technetium 99m Choletec. There is normal uptake of radiotracer by the liver. The bile ducts are visualized by 10 minutes. Gallbladder activity is seen by 15 minutes. Bowel activity is noted by 15 minutes. After 1 hour, 1.2 ?g of CCK was injected intravenously for calculation of gallbladder ejection fraction. The gallbladder ejection fraction is 88%, which is within normal limits. IMPRESSION: No evidence of cystic duct or bile duct obstruction. Normal gallbladder ejection fraction of 88 %. Reviewed, Interpreted and Dictated by Franklin Stewart III, MD Transcribed by Mariella Hackett Authenticated and . [facility]
== END ==
LOC: RAD 10:27
PROVIDERS: PCP Family Medicine; Visit Provider Nurse Practitioner Family
DX: K82.8 Other specified diseases of gallbladder (principal)
CPT/HCPCS: 78227; A9537; J2805

== ENCOUNTER → 2022-03-01 07:10 | Outpatient (CLI) | payer BC, SELFPAY ==
--- NOTE | 2022-03-01 07:11 | NM_ITS ---
APPROVED REPORT Exam: Nuclear Stress Test Indication: short of breath..fatigue Patient Location: Outpatient Stress Tech: Janey Tate OR Tech:Joselyn Todd LUKASZPeggy RT(R)(N) Ht: 5 ft 4 in Wt: 140 lbs Bra Size: 38dd HR: 70 bpm BP: 146/82 mmHg BSA: 1.68 m2 TID: 1.22 BMI: 24.0 Procedure: Patient received a 0.4 mg of intravenous Lexiscan, resting heart rate 70 bpm, resting blood pressure 146/82 mmHg, with Lexiscan maximum heart rate achived was 133 bpm which is Less than 85 % of the maximum predicted heart rate and blood pressure was 174/92 mmHg. With Lexiscan, patient denied any complaint of chest pain. Electrocardiogram Resting electrocardiogram shows sinus rhythm with a bundle branch block, with Lexiscan there is less than 1.[address] segment depression noted from the baseline EKG. The EKG portion of the Lexiscan is nondiagnostic. Cardiac Stress and Resting SPECT Images: Cardiac Stress and Resting SPECT images were obtained using technetium 99m Myoview 32.0 mCi stress and 10.25 mCi at rest. Gated SPECT for analysis of segmental wall motion and calculation of the ejection fraction also done. Prone images were also obtained. Cardiac stress and rest SPECT may show a fixed defect anteroseptally with normal contractility gated SPECT is likely secondary to left bundle branch block, computer derived ejection fraction is 44% with abnormal septal motion. Right ventricle is normal size and contractility. Conclusion: 1. The EKG portion of the Lexiscan is nondiagnostic. 2. No scintigraphic evidence of reversible ischemia, a fixed defect anteroseptally is likely secondary to the bundle branch block, computer derived ejection fraction is 44% with abnormal septal motion, right ventricle is normal size and contractility. 3. Abnormal Lexiscan Myoview study due to low ejection fraction. Electronically signed by : Serge Brunson MD 03/02/2022 10:42:24
--- NOTE | 2022-03-01 08:44 | CA_ITS ---
APPROVED REPORT Exam: Pharmacologic Technologist: Janey Green, Ht: 5 ft 6 in Wt: 146 lbs BSA: 1.75 m2 HR: 66 bpm BP: 146/82 mmHg Medical History Medications: Omeprazole,,,,, Irbesartan,,,,, HCTZ,,,,, Sucralfate,,,,, BisOPROLOL Fumarate,,,,, SpirOnolactone,,,,, Diatepam,,,,, Stress Test Details Test: LEXISCAN Reason for pharmacologic stress test: physical limitation. HR Resting HR: 70 bpm Max Heart Rate (APMHR): 165.834766 bpm Max HR Achieved: 133 bpm Target HR (85% APMHR): 140.534836 bpm % of APMHR: 80.61 Recovery HR: 91 bpm BP Resting BP: 146.0/82.0 mmHg Max BP: 174.0/92.0 mmHg Recovery BP: 140.0/90.0 mmHg ECG Resting ECG: NSR, LBBB, PVCs Clinical Exercise duration: 04:00 min Highest Stage Achieved: Exercise capacity: 1.0 METs Stress ECG Conclusion Switched from exercise due to LBBB Symptoms: very mild chest discomfort. Brief SOA, mild head discomfort. Arrhythmias/Ectopy: Occasional isolated PVCs. ST-T Changes: Exaggeration of baseline abns. Conclusion: Non-diagnostic Lexiscan stress. Myoviw images reported separately. Test Summary REST . . . . . . . Resting REST 02:35 . . 70 . 146/ 82 . . Stage 1 01:00 . . 119 . . . . Stage 2 01:00 . . 120 . 171/102 . . Stage 3 01:00 . . 115 . 159/ 98 . . Stage 4 01:00 . . 109 . 146/ 85 . Stop exercise at 04:00 RECOVERY 01:00 . . 101 . . . . RECOVERY 02:00 . . 94 . 174/ 92 . . RECOVERY 03:00 . . 91 . 138/ 85 . . RECOVERY 03:53 . . 85 . 140/ 90 . . Electronically signed by : Serge Brunson MD 03/02/2022 10:22:40
== END ==
LOC: RAD 07:11
PROVIDERS: PCP Family Medicine; Visit Provider Nurse Practitioner
DX: R06.00 Dyspnea, unspecified (principal); I10 Essential (primary) hypertension; E78.2 Mixed hyperlipidemia
CPT/HCPCS: 78452; 93017; A9502; J2785

== ENCOUNTER → 2022-03-16 14:34 | Outpatient (CLI) | payer BC, SELFPAY ==
--- NOTE | 2022-03-16 14:49 | CA_ITS ---
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 7.80 mmHg Mitral Valve MV A Velocity 70.00 (40-130 cm/s) E/A Ratio 0.72 MV Decel. Time 113.00 (160-240 ms) Pulmonary Valve PV Peak Velocity 119.00 (50-150 cm/s) Tricuspid Valve TR P. Velocity 301.00 cm/s RAP Estimate 10.00 mmHg RVSP 46.30 mmHg Left Ventricle Left atrium is mildly enlarged, left ventricle is normal size, mild concentric left ventricular hypertrophy, estimated ejection fraction 55% with no regional wall motion abnormality, Doppler evidence of impaired LV relaxation seen, tissue Doppler is inconclusive. Right Ventricle Right atrium and right ventricle are normal size and contractility. Aortic Valve Aortic valve is minimally thickened and fibrosed there is no aortic stenosis or aortic insufficiency. Mitral Valve Mitral valve is grossly normal. There is no mitral stenosis, there is trace mitral regurgitation. Tricuspid Valve Tricuspid valve grossly normal, there is trace tricuspid regurgitation, calculated right ventricular systolic pressure is 35 mmHg. Pulmonic Valve Pulmonic valve is poorly visualized. Great Vessels Aortic root is normal size. Inferior vena cava is poorly visualized, coronary sinus is dilated. Pericardium No significant pericardial effusion noted. Conclusion 1. Normal left ventricular size mild concentric left ventricular hypertrophy, estimated ejection fraction 55% with no regional wall motion abnormality, Doppler evidence of impaired LV relaxation seen. 2. Dilated coronary sinus. 3. Trace mitral and tricuspid regurgitation, calculated right ventricular systolic pressure is 35 mmHg. 4. No significant pericardial effusion. 5. Inferior vena cava is poorly visualized. Electronically signed by : Serge Brunson MD 03/16/2022 16:48:00
== END ==
PROVIDERS: PCP Family Medicine; Visit Provider Physician Assistant
DX: I42.9 Cardiomyopathy, unspecified (principal)
CPT/HCPCS: 93306

== ENCOUNTER → 2022-03-28 07:10 | Outpatient (CLI) | payer BC, SELFPAY ==
[2022-03-28 07:40] VITALS: BMI 24.0
[2022-03-28 07:52] LABS: Basophils # 0.1 K/mm3 (0-0.2); Basophils % 1.1 % (0.1-2.0); Eosinophils # 0.3 K/mm3 (0.0-0.4); Eosinophils % 4.1 % (0.1-12.0); Hematocrit 40.1 % (37.0-47.0); Hemoglobin 13.2 g/dL (12.2-16.2); Lymphocytes # 1.9 K/mm3 (0.7-4.5); Lymphocytes % 30.8 % (10-50); Mean Corpuscular HGB Conc 32.9 g/dL (31.8-35.4); Mean Corpuscular Hemoglobin 31.1 pg (27.0-31.2); Mean Corpuscular Volume 94.6 fl (81-99); Mean Platelet Volume 7.4 fl (7.4-10.4); Monocytes # 0.4 K/mm3 (0.1-1.0); Monocytes % 6.5 % (1.7-9.3); Neutrophils # 3.6 K/mm3 (1.8-7.8); Neutrophils % 57.4 % (37.0-80.0); Platelet Count 286 K/mm3 (142-424); Red Blood Count 4.24 M/mm3 (4.20-5.40); White Blood Count 6.2 K/mm3 (4.8-10.8)
[2022-03-28 07:53] LABS: Chloride 100 mmol/L (98-107); Potassium 3.7 mmoL/L (3.5-5.1); Sodium 135 mmol/L (136-145)
[2022-03-28 07:56] LABS: Alanine Aminotransferase 27 U/L (12-78); Albumin Level 4.7 g/dl (3.5-5.0); Albumin/Globulin Ratio 1.7 (1.1-1.8); Alkaline Phosphatase 83 U/L (38-126); Anion Gap 12.7 mEq/L (5-15); Aspartate Amino Transferase 36 U/L (14-36); Bilirubin,Total 0.6 mg/dl (0.2-1.3); Blood Urea Nitrogen 15 mg/dl (7-17); Calcium 9.6 mg/dl (8.4-10.2); Carbon Dioxide 26 mmol/L (22.0-30.0); Creatinine Clearance Estimated 80 mL/min (50-200); Estimated Glomerular Filt Rate 74 ml/min (>60); GFR (African American) 90 ML/MIN (>60); Globulin 2.8 g/dL (1.3-3.2); Glucose 101 mg/dl (74-100); Total Protein,Serum 7.5 g/dl (6.3-8.2)
== END ==
PROVIDERS: PCP Family Medicine; Visit Provider Nurse Practitioner Family
DX: I20.8 Other forms of angina pectoris (principal); I42.9 Cardiomyopathy, unspecified; R94.39 Abnormal result of other cardiovascular function study
CPT/HCPCS: 75574; 80053; 85025; Q9967

== ENCOUNTER → 2022-08-07 14:06 | Outpatient (CLI) | payer BC, SELFPAY ==
[2022-08-07 14:55] LABS: Basophils % 0.2 % (0.1-2.0); Eosinophils # 0.1 K/mm3 (0.0-0.4); Eosinophils % 1.5 % (0.1-12.0); Hematocrit 40.2 % (37.0-47.0); Hemoglobin 12.8 g/dL (12.2-16.2); Lymphocytes # 1.2 K/mm3 (0.7-4.5); Lymphocytes % 19.3 % (10-50); Mean Corpuscular HGB Conc 31.9 g/dL (31.8-35.4); Mean Corpuscular Hemoglobin 30.4 pg (27.0-31.2); Mean Corpuscular Volume 95.3 fl (81-99); Mean Platelet Volume 7.3 fl (7.4-10.4); Monocytes # 0.3 K/mm3 (0.1-1.0); Monocytes % 5.4 % (1.7-9.3); Neutrophils # 4.5 K/mm3 (1.8-7.8); Neutrophils % 73.5 % (37.0-80.0); Platelet Count 261 K/mm3 (142-424); Red Blood Count 4.22 M/mm3 (4.20-5.40); Red Cell Distribution Width 13.2 % (11.5-17.5); White Blood Count 6.2 K/mm3 (4.8-10.8)
[2022-08-07 15:04] LABS: Alanine Aminotransferase 34 U/L (12-78); Albumin Level 4.7 g/dl (3.5-5.0); Alkaline Phosphatase 96 U/L (38-126); Anion Gap 16.3 mEq/L (5-15); Aspartate Amino Transferase 46 U/L (14-36); Bilirubin,Indirect 0.4 mg/dL (0.0-0.9); Bilirubin,Total 0.4 mg/dl (0.2-1.3); Bilirubin,Unconjugated 0.6 mg/dL (0.0-1.1); Blood Urea Nitrogen 13 mg/dl (7-17); Calcium 9.7 mg/dl (8.4-10.2); Carbon Dioxide 27 mmol/L (22.0-30.0); Chloride 95 mmol/L (98-107); Cholesterol 136 mg/dl (140-200); Estimated Glomerular Filt Rate 74 ml/min (>60); GFR (African American) 90 ML/MIN (>60); Glucose 112 mg/dl (74-100); HDL Cholesterol 68 mg/dl (40-60); Magnesium 1.7 mg/dl (1.6-2.3); Potassium 4.3 mmoL/L (3.5-5.1); Sodium 134 mmol/L (136-145); Total Protein,Serum 7.5 g/dl (6.3-8.2); Triglycerides 177 mg/dl (30-150); VLDL Cholesterol 35 mg/dL (0-40)
[2022-08-07 15:15] LABS: Direct LDL Cholesterol 43.97 mg/dL (100-129)
[2022-08-07 15:19] LABS: Troponin I < 0.01 ng/ml (0.00-0.034)
[2022-08-07 15:35] LABS: Thyroid Stimulating Hormone 1.82 uIU/mL (0.465-4.68)
== END ==
PROVIDERS: PCP Family Medicine; Visit Provider Physician Assistant
DX: R06.09 Other forms of dyspnea (principal); I20.8 Other forms of angina pectoris; I42.9 Cardiomyopathy, unspecified; I10 Essential (primary) hypertension; E78.2 Mixed hyperlipidemia; I71.21 Aneurysm of the ascending aorta, without rupture; R94.31 Abnormal electrocardiogram [ECG] [EKG]; R94.39 Abnormal result of other cardiovascular function study
CPT/HCPCS: 36415; 80048; 80061; 80076; 83735; 84439; 84443; 84484; 85025

== ENCOUNTER → 2022-09-25 12:11 | Outpatient (CLI) | payer BC, SELFPAY ==
[2022-09-25 12:16] LABS: MANUAL DIFFERENTIAL MANUAL DIFFERENTIAL (MANUAL DIFF)
[2022-09-25 12:42] LABS: Basophils % 0.4 % (0.1-2.0); Eosinophils # 0.2 K/mm3 (0.0-0.4); Eosinophils % 3.4 % (0.1-12.0); Hematocrit 39.7 % (37.0-47.0); Hemoglobin 12.7 g/dL (12.2-16.2); Lymphocytes # 1.1 K/mm3 (0.7-4.5); Lymphocytes % 24.2 % (10-50); Mean Corpuscular HGB Conc 31.9 g/dL (31.8-35.4); Mean Corpuscular Hemoglobin 30.4 pg (27.0-31.2); Mean Corpuscular Volume 95.1 fl (81-99); Mean Platelet Volume 7.6 fl (7.4-10.4); Monocytes # 0.3 K/mm3 (0.1-1.0); Monocytes % 5.9 % (1.7-9.3); Platelet Count 262 K/mm3 (142-424); Red Blood Count 4.17 M/mm3 (4.20-5.40); Red Cell Distribution Width 13.4 % (11.5-17.5); White Blood Count 4.6 K/mm3 (4.8-10.8)
[2022-09-25 13:53] LABS: Alanine Aminotransferase 34 U/L (12-78); Albumin Level 4.6 g/dl (3.5-5.0); Alkaline Phosphatase 90 U/L (38-126); Anion Gap 12.6 mEq/L (5-15); Aspartate Amino Transferase 43 U/L (14-36); Bilirubin,Indirect 0.5 mg/dL (0.0-0.9); Bilirubin,Total 0.5 mg/dl (0.2-1.3); Bilirubin,Unconjugated 0.6 mg/dL (0.0-1.1); Blood Urea Nitrogen 14 mg/dl (7-17); Calcium 9.7 mg/dl (8.4-10.2); Carbon Dioxide 27 mmol/L (22.0-30.0); Chloride 101 mmol/L (98-107); Cholesterol 141 mg/dl (140-200); Estimated Glomerular Filt Rate 74 ml/min (>60); GFR (African American) 90 ML/MIN (>60); Glucose 102 mg/dl (74-100); HDL Cholesterol 70 mg/dl (40-60); Magnesium 1.7 mg/dl (1.6-2.3); Potassium 4.6 mmoL/L (3.5-5.1); Sodium 136 mmol/L (136-145); Total Protein,Serum 7.1 g/dl (6.3-8.2); Triglycerides 132 mg/dl (30-150); VLDL Cholesterol 26 mg/dL (0-40)
[2022-09-25 14:05] LABS: Direct LDL Cholesterol 53.29 mg/dL (100-129)
[2022-09-25 14:11] LABS: Free Thyroxine Index 2.3 ug/dL (5.93-13.13); T4 (Thyroxine) 6.7 ug/dl (5.53-11.0); Triiodothryronine (T3) Uptake 35 % (23.5-40.5); Troponin I < 0.01 ng/ml (0.00-0.034)
[2022-09-25 14:25] LABS: Thyroid Stimulating Hormone 1.69 uIU/mL (0.465-4.68)
[2022-09-25 16:35] LABS: Lymphocytes % 24 % (10-50); Monocytes % 4 % (2-9); Neutrophils % 72 % (42-76); Platelet Estimate Normal; RBC Morphology Normal; Total Cells Counted 100
== END ==
PROVIDERS: PCP Family Medicine; Visit Provider Internal Medicine
DX: R06.09 Other forms of dyspnea (principal); I20.8 Other forms of angina pectoris; I42.8 Other cardiomyopathies
CPT/HCPCS: 36415; 80048; 80061; 80076; 83735; 84436; 84443; 84479; 84484; 85007; 85014; 85018; 85048; 85049

== ENCOUNTER → 2022-09-27 12:52 | Outpatient (CLI) | payer BC, SELFPAY ==
--- NOTE | 2022-09-27 12:52 | CT_ITS ---
FINAL REPORT CLINICAL HISTORY: thoracic aneurysm COMPARISON: None FINDINGS: Thin section axial CT images of the chest were obtained with contrast. 3D reformatted images were also obtained. This study was performed with techniques to keep radiation doses as low as reasonably achievable (ALARA). Individualized dose reduction techniques using automated exposure control or adjustment of mA and/or kV according to the patient''s size were employed. There is no evidence of pulmonary embolism. There is an a sending aortic aneurysm measuring 4.3 cm in greatest diameter. Note is made of a left-sided superior vena cava as a variant. There is no evidence of mediastinal or hilar mass or adenopathy. There is no evidence of pulmonary mass or nodule. No localized inflammatory process is seen within the lungs. Limited images of the upper abdomen are unremarkable. IMPRESSION: Ascending aortic aneurysm, measuring 4.3 cm in diameter. 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 Reviewed, Interpreted and Dictated by Franklin Stewart III, MD Transcribed by Aleksandra Parker Authenticated and [facility]
== END ==
PROVIDERS: PCP Family Medicine; Visit Provider Physician Assistant
DX: R06.09 Other forms of dyspnea (principal); I20.8 Other forms of angina pectoris; I42.8 Other cardiomyopathies; E78.2 Mixed hyperlipidemia; I10 Essential (primary) hypertension; I71.21 Aneurysm of the ascending aorta, without rupture; R94.31 Abnormal electrocardiogram [ECG] [EKG]; R94.39 Abnormal result of other cardiovascular function study
CPT/HCPCS: 71275; Q9967

== ENCOUNTER → 2022-12-27 09:19 | Outpatient (CLI) | payer BC, SELFPAY ==
[2022-12-27 10:22] LABS: Basophils % 0.6 % (0.1-2.0); Eosinophils # 0.2 K/mm3 (0.0-0.4); Eosinophils % 3.4 % (0.1-12.0); Hematocrit 37.5 % (37.0-47.0); Hemoglobin 13.1 g/dL (12.2-16.2); Lymphocytes # 1.5 K/mm3 (0.7-4.5); Lymphocytes % 32.5 % (10-50); Mean Corpuscular Volume 94.5 fl (81-99); Mean Platelet Volume 7.2 fl (7.4-10.4); Monocytes # 0.3 K/mm3 (0.1-1.0); Monocytes % 6.1 % (1.7-9.3); Neutrophils # 2.7 K/mm3 (1.8-7.8); Neutrophils % 57.5 % (37.0-80.0); Platelet Count 243 K/mm3 (142-424); Red Blood Count 3.96 M/mm3 (4.20-5.40); Red Cell Distribution Width 12.9 % (11.5-17.5); White Blood Count 4.7 K/mm3 (4.8-10.8)
[2022-12-27 11:12] LABS: Alanine Aminotransferase 30 U/L (12-78); Albumin Level 4.6 g/dl (3.5-5.0); Albumin/Globulin Ratio 1.8 (1.1-1.8); Alkaline Phosphatase 86 U/L (38-126); Aspartate Amino Transferase 42 U/L (14-36); Bilirubin,Total 0.4 mg/dl (0.2-1.3); Blood Urea Nitrogen 14 mg/dl (7-17); Calcium 9.8 mg/dl (8.4-10.2); Carbon Dioxide 27 mmol/L (22.0-30.0); Chloride 96 mmol/L (98-107); Chol/HDL Ratio 2.3 (1-3.5); Cholesterol 145 mg/dl (140-200); Estimated Glomerular Filt Rate 74 ml/min (>60); GFR (African American) 90 ML/MIN (>60); Globulin 2.6 g/dL (1.3-3.2); Glucose 83 mg/dl (74-100); HDL Cholesterol 63 mg/dl (40-60); Potassium 4.5 mmoL/L (3.5-5.1); Total Protein,Serum 7.2 g/dl (6.3-8.2); Triglycerides 217 mg/dl (30-150); VLDL Cholesterol 43 mg/dL (0-40)
[2022-12-27 12:32] LABS: Anion Gap 14.5 mEq/L (5-15); Sodium 133 mmol/L (136-145)
[2022-12-27 12:46] LABS: Direct LDL Cholesterol 59.26 mg/dL (100-129)
== END ==
PROVIDERS: PCP Family Medicine; Visit Provider Nurse Practitioner Obstetrics & Gynecology
DX: Z01.419 Encounter for gynecological examination (general) (routine) without abnormal findings (principal)
CPT/HCPCS: 36415; 80053; 80061; 85025

== ENCOUNTER → 2023-01-15 14:54 | Outpatient (CLI) | payer BC, SELFPAY ==
--- NOTE | 2023-01-15 14:54 | MM_ITS ---
PROCEDURE INFORMATION: Exam: MG Bilateral Screening 3D Mammography Exam date and time: 01/15/2023 2:55 PM Age: 57 years old Clinical indication: Screening examination TECHNIQUE: Imaging protocol: Bilateral Screening tomosynthesis and 2D mammography including computer-aided detection (CAD) when performed. COMPARISON: 1. MG MM DIG SCREENING MAMM BI W/CAD 12/01/2021 1:00 PM 2. MG MM DIG SCREENING MAMM BI W/CAD 08/24/2020 1:17 PM FINDINGS: MAMMOGRAPHY: Breast composition: There are scattered areas of fibroglandular density. Mass: None. Architectural distortion: None. Calcifications: No suspicious calcifications. Asymmetric density: None. Skin thickening: None. Axillary adenopathy: None. IMPRESSION: No mammographic evidence of malignancy. Annual screening is recommended unless otherwise clinically indicated. ASSESSMENT: BI-RADS Category 1: Negative
== END ==
PROVIDERS: PCP Family Medicine; Visit Provider Nurse Practitioner Obstetrics & Gynecology
DX: Z12.31 Encounter for screening mammogram for malignant neoplasm of breast (principal)
CPT/HCPCS: 77063; 77067

== ENCOUNTER 2023-07-11 07:57 | Outpatient (CLI) | payer BC, SELFPAY ==
--- NOTE | 2023-07-11 08:01 | US_ITS ---
FINAL REPORT CLINICAL HISTORY: BLOATING; ESOPHAGEAL REFLUX COMPARISON: None FINDINGS: Sonographic images of the right upper quadrant were obtained. The pancreas is partially obscured.The liver has an unremarkable appearance.The gallbladder appears normal without evidence of gallstones.There is no evidence of biliary ductal dilatation.The common duct measures 3 mm. Limited images of the right kidney are unremarkable. IMPRESSION: Unremarkable right upper quadrant ultrasound. Reviewed, Interpreted and Dictated by Franklin Stewart III, MD Transcribed by Aleksandra Parker Authenticated and [facility]
== END 2023-07-11 23:59 | disposition home or self-care (01) ==
LOC: RAD 07:58
PROVIDERS: PCP Nurse Practitioner; Visit Provider Nurse Practitioner
DX: R14.0 Abdominal distension (gaseous) (principal); K21.9 Gastro-esophageal reflux disease without esophagitis
CPT/HCPCS: 76705

== ENCOUNTER 2023-11-29 11:58 | Outpatient (CLI) | payer BC, SELFPAY ==
[2023-11-29 12:43] LABS: Basophils % 0.7 % (0.1-2.0); Eosinophils # 0.2 K/mm3 (0.0-0.4); Hematocrit 39.3 % (37.0-47.0); Lymphocytes # 1.4 K/mm3 (0.7-4.5); Lymphocytes % 25.3 % (10-50); Mean Corpuscular HGB Conc 32.9 g/dL (31.8-35.4); Mean Corpuscular Hemoglobin 33.2 pg (27.0-31.2); Mean Corpuscular Volume 100.8 fl (81-99); Mean Platelet Volume 6.9 fl (7.4-10.4); Monocytes # 0.4 K/mm3 (0.1-1.0); Neutrophils # 3.5 K/mm3 (1.8-7.8); Platelet Count 257 K/mm3 (142-424); Red Cell Distribution Width 13.1 % (11.5-17.5); White Blood Count 5.4 K/mm3 (4.8-10.8)
[2023-11-29 14:10] LABS: Alanine Aminotransferase 36 U/L (12-78); Albumin Level 4.7 g/dl (3.5-5.0); Alkaline Phosphatase 78 U/L (38-126); Anion Gap 11.3 mEq/L (5-15); Aspartate Amino Transferase 44 U/L (14-36); Bilirubin,Direct 0.3 mg/dl (0.0-0.4); Bilirubin,Indirect 0.4 mg/dL (0.0-0.9); Bilirubin,Total 0.7 mg/dl (0.2-1.3); Bilirubin,Unconjugated 0.4 mg/dL (0.0-1.1); Blood Urea Nitrogen 16 mg/dl (7-17); Calcium 9.8 mg/dl (8.4-10.2); Carbon Dioxide 26 mmol/L (22.0-30.0); Chloride 98 mmol/L (98-107); Chol/HDL Ratio 2.5 (1-3.5); Cholesterol 168 mg/dl (140-200); Estimated Glomerular Filt Rate 46 ml/min (>60); GFR (African American) 56 ML/MIN (>60); Glucose 95 mg/dl (74-100); HDL Cholesterol 68 mg/dl (40-60); Magnesium 1.4 mg/dl (1.6-2.3); Potassium 4.3 mmoL/L (3.5-5.1); Sodium 131 mmol/L (136-145); Total Protein,Serum 6.9 g/dl (6.3-8.2); Triglycerides 253 mg/dl (30-150); VLDL Cholesterol 51 mg/dL (0-40)
[2023-11-29 14:20] LABS: Direct LDL Cholesterol 64.88 mg/dL (100-129)
[2023-11-29 14:25] LABS: Free T4 (Free Thyroxine) 0.71 ng/dl (0.78-2.19)
[2023-11-29 14:39] LABS: Thyroid Stimulating Hormone 1.65 uIU/mL (0.465-4.68)
== END 2023-11-29 23:59 | disposition home or self-care (01) ==
LOC: LAB 11:58
PROVIDERS: PCP Family Medicine; Visit Provider Internal Medicine
DX: I71.21 Aneurysm of the ascending aorta, without rupture (principal); I25.10 Atherosclerotic heart disease of native coronary artery without angina pectoris; I10 Essential (primary) hypertension; E78.2 Mixed hyperlipidemia; I42.9 Cardiomyopathy, unspecified
CPT/HCPCS: 36415; 80048; 80061; 80076; 83735; 84439; 84443; 85025

== ENCOUNTER 2023-12-02 08:03 | Outpatient (CLI) | payer BC, SELFPAY ==
--- NOTE | 2023-12-02 08:04 | CT_ITS ---
FINAL REPORT TECHNIQUE: Postcontrast axial images of the chest were performed in a CTA protocol. This study was performed with techniques to keep radiation doses as low as reasonably achievable, (ALARA). Individualized dose reduction technique using automated exposure control or adjustment of mA and/or kV according to the patient's size were employed. CLINICAL HISTORY: Thoracic aortic aneurysm COMPARISON: 09/27/2022 FINDINGS: The heart is normal in size. Note is again made of a left sided SVC as a variant. No adenopathy is identified. No pleural or pericardial effusion is identified. There is a 43 mm ascending aortic aneurysm which is stable. There is no evidence of dissection. There is no filling defect to suggest pulmonary embolism. No lung infiltrate or mass is identified. The images of the upper abdomen are unremarkable. IMPRESSION: Stable ascending aortic aneurysm without evidence of dissection. Reviewed, Interpreted and Dictated by Franklin Stewart III, MD Transcribed by Lois Samuel Authenticated and [facility]
[2023-12-02] MEDS: IOPAMIDOL-370 (76%);100ML BOTTLE 80 ML IV (08:33)
[2023-12-02] MEDS: SODIUM CHLORIDE 0.9% 10ML SYR (RAD ONLY) 10 ML IV (08:33)
[2023-12-02] MEDS: 0.9 % SODIUM CHLORIDE 50 ML VIAL IV (08:33)
== END 2023-12-02 23:59 | disposition home or self-care (01) ==
LOC: RAD 08:04
PROVIDERS: PCP Family Medicine; Visit Provider Physician Assistant
DX: I71.21 Aneurysm of the ascending aorta, without rupture (principal)
CPT/HCPCS: 71275; Q9967

== ENCOUNTER 2024-01-20 09:05 | Outpatient (CLI) | payer BC, SELFPAY ==
[2024-01-20 09:52] LABS: Basophils # 0.1 K/mm3 (0-0.2); Eosinophils # 0.2 K/mm3 (0.0-0.4); Eosinophils % 3.6 % (0.1-12.0); Hematocrit 39.5 % (37.0-47.0); Hemoglobin 13.9 g/dL (12.2-16.2); Lymphocytes # 1.6 K/mm3 (0.7-4.5); Lymphocytes % 25.6 % (10-50); Mean Corpuscular HGB Conc 35.2 g/dL (31.8-35.4); Mean Corpuscular Hemoglobin 32.9 pg (27.0-31.2); Mean Corpuscular Volume 93.5 fl (81-99); Mean Platelet Volume 6.9 fl (7.4-10.4); Monocytes # 0.5 K/mm3 (0.1-1.0); Monocytes % 7.3 % (1.7-9.3); Neutrophils % 62.5 % (37.0-80.0); Platelet Count 272 K/mm3 (142-424); Red Blood Count 4.22 M/mm3 (4.20-5.40); Red Cell Distribution Width 12.8 % (11.5-17.5); White Blood Count 6.3 K/mm3 (4.8-10.8)
[2024-01-20 10:00] LABS: Albumin Level 4.7 g/dl (3.5-5.0); Chloride 101 mmol/L (98-107); Sodium 137 mmol/L (136-145)
[2024-01-20 10:01] LABS: Potassium 3.5 mmoL/L (3.5-5.1)
[2024-01-20 10:03] LABS: Alanine Aminotransferase 34 U/L (12-78); Albumin/Globulin Ratio 2.1 (1.1-1.8); Alkaline Phosphatase 66 U/L (38-126); Anion Gap 14.5 mEq/L (5-15); Aspartate Amino Transferase 38 U/L (14-36); Bilirubin,Total 0.8 mg/dl (0.2-1.3); Blood Urea Nitrogen 13 mg/dl (7-17); Carbon Dioxide 25 mmol/L (22.0-30.0); Cholesterol 149 mg/dl (140-200); Estimated Glomerular Filt Rate 65 ml/min (>60); GFR (African American) 78 ML/MIN (>60); Globulin 2.2 g/dL (1.3-3.2); Iron 116 ug/dL (37-170); Total Protein,Serum 6.9 g/dl (6.3-8.2); Triglycerides 232 mg/dl (30-150); VLDL Cholesterol 46 mg/dL (0-40)
[2024-01-20 10:04] LABS: Calcium 9.7 mg/dl (8.4-10.2); Chol/HDL Ratio 2.7 (1-3.5); Glucose 109 mg/dl (74-100); HDL Cholesterol 56 mg/dl (40-60)
[2024-01-20 10:14] LABS: Total Iron Binding Capacity 344 ug/dL (265-497)
[2024-01-20 10:21] LABS: Triiodothryronine (T3) Uptake 35 % (23.5-40.5)
[2024-01-20 10:22] LABS: T4 (Thyroxine) 5.6 ug/dl (5.53-11.0)
[2024-01-20 10:34] LABS: Thyroid Stimulating Hormone 2.63 uIU/mL (0.465-4.68)
[2024-01-20 10:35] LABS: Thyroid Stimulating Hormone 2.66 uIU/mL (0.465-4.68)
[2024-01-20 10:38] LABS: Ferritin 166 ng/ml (11.1-264)
[2024-01-27 05:20] LABS: 1,25 Dihydroxy Vitamin D 62 pg/mL (.); 1,25-Dihydroxy, Vitamin D-2 <10 pg/mL (.); 1,25-Dihydroxy, Vitamin D-3 53 pg/mL (.)
== END 2024-01-20 23:59 | disposition home or self-care (01) ==
LOC: LAB 09:06
PROVIDERS: PCP Family Medicine; Visit Provider Nurse Practitioner Obstetrics & Gynecology
DX: Z01.419 Encounter for gynecological examination (general) (routine) without abnormal findings (principal)
CPT/HCPCS: 36415; 80050; 80053; 80061; 82652; 82728; 83540; 83550; 84436; 84443; 84479; 85025

== ENCOUNTER 2024-01-30 14:03 | Outpatient (CLI) | payer BC, SELFPAY ==
--- NOTE | 2024-01-30 14:03 | MM_ITS ---
PROCEDURE INFORMATION: Exam: MG Bilateral Screening 3D Mammography Exam date and time: 01/30/2024 1:53 PM Age: 58 years old Clinical indication: Screening examination TECHNIQUE: Imaging protocol: Bilateral Screening tomosynthesis and 2D mammography including computer-aided detection (CAD) when performed. COMPARISON: 1. MG MM DIG SCREENING MAMM BI W/CAD 01/15/2023 2:55 PM 2. MG MM DIG SCREENING MAMM BI W/CAD 12/01/2021 1:00 PM FINDINGS: MAMMOGRAPHY: Breast composition: There are scattered areas of fibroglandular density. Mass: None. Architectural distortion: None. Calcifications: No suspicious calcifications. Asymmetric density: None. Skin thickening: None. Axillary adenopathy: None. IMPRESSION: No mammographic evidence of malignancy. Annual screening is recommended unless otherwise clinically indicated. ASSESSMENT: BI-RADS Category 1: Negative.
== END 2024-01-30 23:59 | disposition home or self-care (01) ==
LOC: RAD 14:03
PROVIDERS: PCP Family Medicine; Visit Provider Nurse Practitioner Obstetrics & Gynecology
DX: Z12.31 Encounter for screening mammogram for malignant neoplasm of breast (principal)
CPT/HCPCS: 77063; 77067

== ENCOUNTER 2024-02-02 14:01 | Emergency (ER) | payer BC, SELFPAY ==
[2024-02-02 14:02] VITALS: BP 133/91; PULSE 81; RESP 16; TEMP 36.7; O2SAT 99; BMI 25.6
[2024-02-02 14:05] VITALS: BP 133/91; PULSE 84; O2SAT 97
--- NOTE | 2024-02-02 14:07 | HMH.EDGENADL ---
Discharge Plan Disposition Patient Disposition: Home, Self-Care Condition: Good Prescriptions Prescriptions: New cefdinir 300 mg capsule 300 mg PO BID 7 Days Qty: 14 0RF ondansetron 4 mg tablet,disintegrating 4 mg PO Q8H PRN (Reason: nausea and vomiting) 4 Days Qty: 12 0RF ketorolac 10 mg tablet 10 mg PO Q8H PRN (Reason: pain) 3 Days Qty: 12 0RF No Action lansoprazole 30 mg capsule,delayed release(DR/EC) 30 mg PO BID Patient Comments: TAKE ONE CAPSULE BY MOUTH TWICE DAILY BEFORE meals as directed aspirin 81 mg tablet,delayed release (DR/EC) See Rx Instructions .ROUTE .COMPLEX Qty: 90 4RF Dose Instruction: TAKE ONE TABLET BY MOUTH EVERY DAY Rx Instructions: TAKE ONE TABLET BY MOUTH EVERY DAY spironolactone 25 mg tablet See Rx Instructions .ROUTE .COMPLEX Qty: 90 3RF Dose Instruction: TAKE ONE TABLET BY MOUTH EVERY DAY Rx Instructions: TAKE ONE TABLET BY MOUTH EVERY DAY omeprazole 40 mg capsule,delayed release(DR/EC) See Rx Instructions .ROUTE .COMPLEX Qty: 180 1RF Dose Instruction: TAKE ONE CAPSULE BY MOUTH TWICE DAILY Rx Instructions: TAKE ONE CAPSULE BY MOUTH TWICE DAILY atorvastatin 40 mg tablet See Rx Instructions .ROUTE .COMPLEX Qty: 90 1RF Dose Instruction: TAKE ONE TABLET BY MOUTH EVERY NIGHT AT BEDTIME Rx Instructions: TAKE ONE TABLET BY MOUTH EVERY NIGHT AT BEDTIME bisoprolol fumarate 10 mg tablet 10 mg PO DAILY Qty: 90 1RF irbesartan-hydrochlorothiazide 150-12.5 mg tablet See Rx Instructions .ROUTE .COMPLEX Qty: 180 3RF Dose Instruction: TAKE TWO TABLETS BY MOUTH EVERY DAY Rx Instructions: TAKE TWO TABLETS BY MOUTH EVERY DAY diazepam 5 mg tablet 5 mg PO DAILY PRN (Reason: anxienty) Qty: 30 1RF Referrals Follow up/Referrals: Silvana Llamas APRN [Primary Care Provider] - See instructions Activity Restrictions/Add. Instructions Additional Instructions/Restrictions: You were evaluated in the emergency department today and diagnosed with pyelonephritis or a kidney infection. 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 You may also take Tylenol every 4-6 hours as needed for pain. Follow-up closely with your primary care provider. Return to the emergency department for new or worsening symptoms. Make sure you stay hydrated. 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 For this, you can also follow-up with your primary care provider. Clinical Impressions Clinical Impression: Pyelonephritis Stand Alone Forms Stand Alone Forms: Work/School Release Instructions Patient Instructions: DI for Kidney Infection, DI for Urinary Tract Infection (UTI) Print Language Print Language: Lithuanian Discharge ED Provider: Eric Middleton General Adult HPI <Eric Middleton MD - Last Filed: 02/02/24 17:41> General Chief complaint: Urogenital-Female Stated complaint: lower back hip pain uti Time Seen by Provider: 02/02/24 14:07 History of Present Illness HPI narrative: Patient is a 58-year-old female with history of hypertension, CAD, GERD. Patient presents today for concern for right flank pain. She reports that this pain began on and she visited her PCPs office who tested her urine and said that it was infected and so began Macrobid and treated her for yeast infection with fluconazole and started her on Azo. Patient reports continued pain in the right flank. She endorses some decreased urination and continued dysuria. No hematuria although her urine is orange from the Azo. She denies any fevers, chest pain, shortness of breath, nausea, vomiting, diarrhea. She is still passing gas and having bowel movements. Her only surgical history is C-sections. She has never had a kidney stone before. Related Data Home Medications ?Medication ?Instructions ?Recorded ?Confirmed lansoprazole 30 mg capsule,delayed 30 mg PO BID 11/12/23 01/15/24 release Previous Rx's ?Medication ?Instructions ?Recorded aspirin 81 mg tablet,delayed See Rx Instructions .Route 03/05/23 release .COMPLEX #90 tabs spironolactone 25 mg tablet See Rx Instructions .Route 05/06/23 .COMPLEX #90 tabs omeprazole 40 mg capsule,delayed See Rx Instructions .Route 06/03/23 release .COMPLEX #180 caps atorvastatin 40 mg tablet See Rx Instructions .Route 09/30/23 .COMPLEX #90 tabs bisoprolol fumarate 10 mg tablet 10 mg PO DAILY BP #90 tabs 09/30/23 irbesartan 150 See Rx Instructions .Route 11/27/23 mg-hydrochlorothiazide 12.5 mg .COMPLEX #180 tabs tablet diazepam 5 mg tablet 5 mg PO DAILY PRN anxienty #30 tabs 01/20/24 cefdinir 300 mg capsule 300 mg PO BID 7 days #14 caps 02/02/24 ketorolac 10 mg tablet 10 mg PO Q8H PRN pain 3 days #12 02/02/24 tabs ondansetron 4 mg disintegrating 4 mg PO Q8H PRN nausea and 02/02/24 tablet vomiting 4 days #12 tabs Allergies Allergy/AdvReac Type Severity Reaction Status Date / Time latex Allergy Unknown Unknown Verified 01/15/24 10:21 allergy reaction [facility] <Eric Middleton MD - Last Filed: 02/02/24 17:41> [facility] Disclaimer: The information contained in this section may have been updated after the patient was seen, as this information can be updated by other users. Medical History Thoracic ascending aortic aneurysm Coronary artery disease Anxiety Asthma GERD (gastroesophageal reflux disease) HLD (hyperlipidemia) HTN (hypertension) Abnormal electrocardiogram [ECG] [EKG] Dyspnea Grief at loss of child Generalized anxiety disorder Palpitations Surgical History History of delivery Family History Mother Cancer Breast Other Family history of cardiac disorder Social History Smoking Status: Former smoker tobacco type: cigarettes smoking status stop date: Feb 07, 2016 second hand exposure: No alcohol intake: current alcohol intake frequency: a few times a week counseling given: Yes substance use type: denies use current occupational status: retired Travel in the last 8 weeks: None adopted: No caregiver/support person: No foster care: No household members: spouse housing: house lives independently: Yes marital status: number of children: 2 number of grandchildren: 0 education level: high school 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; 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 [employer] current occupational exposures/hazards: No pets and animals: No Hx Recent Travel: No sexually active: Yes caffeine: No physical activity: none manuelito/alevism: None special manuelito needs: No do you feel safe at home: Yes victim of physical abuse: No victim of emotional abuse: No victim of sexual abuse: No would you like helpful sources: No Other Medical History Have you received the Flu Vaccine for this season: No Have you received the Pneumonia Vaccine: No <Eric Middleton MD - Last Filed: 02/02/24 17:41> ROS Obtained: Yes All systems reviewed & no additional complaints except as documented Physical Exam <Eric Middleton MD - Last Filed: 02/02/24 17:41> General General appearance: alert and in no apparent distress Head Head exam: atraumatic and normocephalic Eye Eye exam: Present PERRL and EOMI ENT ENT exam: Present normal oropharynx Neck Neck exam: Present full ROM and trachea midline Chest Chest inspection: Present symmetric chest wall rise Respiratory Respiratory exam: Present normal lung sounds bilaterally; Absent stridor Cardiovascular Cardiovascular exam: Present regular rate and normal rhythm Abdominal Exam Abdominal exam: Present soft and tenderness (rlq); Absent distention, guarding or rebound Extremities Exam Extremities exam: Present full ROM Back Exam Back exam: Present CVA tenderness (R) Neurological Exam Neurological exam: Present alert and oriented X3 Psychiatric Psychiatric exam: Present normal mood Skin Skin exam: Present warm and dry Medical Decision Making <Eric Middleton MD - Last Filed: 02/02/24 17:41> Medical Records Screening: Per USPSTF and CDC recommendations, given the prevalence of disease in our region, it is our hospital?s policy to screen for HIV and viral Hepatitis for all patients aged 18 and over and those with ongoing risk factors. Devin Inquiry Pt receiving controlled substance: No Vital Signs: 02/02/24 14:02 02/02/24 14:05 02/02/24 15:33 Temperature 98.1 F Temperature Source Oral Pulse Rate 84 71 Pulse Rate [Left Radial] 81 Respiratory Rate 16 Blood Pressure 133/91 H 104/67 L Blood Pressure [Right Arm] 133/91 H Blood Pressure Mean [Right Arm] 105 02 Sat by Pulse Oximetry 99 97 94 L Oxygen Delivery Method Room Air Room Air 02/02/24 16:00 02/02/24 16:30 02/02/24 17:30 Temperature 98.0 F Temperature Source Pulse Rate 73 68 66 Pulse Rate [Left Radial] Respiratory Rate 16 Blood Pressure 114/79 121/84 140/86 Blood Pressure [Right Arm] Blood Pressure Mean [Right Arm] 02 Sat by Pulse Oximetry 98 99 Oxygen Delivery Method Room Air Room Air Room Air Lab Data Lab Results 02/02/24 14:14: WBC 9.3, RBC 4.32, Hgb 13.8, Hct 40.0, MCV 92.6, MCH 32.0 H, MCHC 34.5, RDW 12.9, Plt Count 278, MPV 7.4, Neut % (Auto) 75.2, Lymph % (Auto) 17.5, [place] % (Auto) 5.6, Eos % (Auto) 1.2, Baso % (Auto) 0.5, Neut # (Auto) 7.0, Lymph # (Auto) 1.6, [place] # (Auto) 0.5, Eos # (Auto) 0.1, Baso # (Auto) 0.1, Sodium 139, Potassium 3.8, Chloride 102, Carbon Dioxide 23, Anion Gap 17.8 H, BUN 15, Creatinine 1.00, Estimated Creat Clear 62, Estimated GFR 57 L, Est GFR ( Amer) 69, Glucose 105 H, Calcium 10.1, Total Bilirubin 1.0, AST 50 H, ALT 31, Alkaline Phosphatase 86, Total Protein 8.5 H, Albumin 5.4 H, Globulin 3.1, Albumin/Globulin Ratio 1.7, Lipase 202, Urine Color Yellow, Urine Appearance Clear, Urine pH 6.0, Ur Specific [place] 1.020, Urine Protein 2+ A, Urine Glucose (UA) Trace, Urine Ketones 1+, Urine Blood 2+ A, Urine Nitrate Positive A, Urine Bilirubin 1+ A, Urine Urobilinogen 4.0, Ur Leukocyte Esterase 2+ A, Urine RBC Occasional, Urine WBC 20-50, Ur Squamous Epith Cells 3-5, HIV 1&2 Antibody Rapid Nonreactive 02/02/24 14:55: Lactate 1.4 02/02/24 14:14 02/02/24 14:14 Orders (Tests/Meds): ED MEDICATIONS Discontinued Medications Generic Name Dose Route Start Last Admin Trade Name Freq PRN Reason Stop Dose Admin Ceftriaxone Sodium 2 gm/ 100 mls @ 200 mls/hr 02/02/24 16:00 02/02/24 16:17 Sodium Chloride IV 02/12/24 15:59 200 mls/hr Q24H MARITZA Administration Iopamidol 75 ml 02/02/24 15:18 02/02/24 15:19 Iopamidol-370 (76%);100ml Bottle IV 02/02/24 15:19 75 ml ONCE ONE Administration Ketorolac Tromethamine 15 mg 02/02/24 17:13 02/02/24 17:22 Ketorolac 30mg/Ml Vial IV 02/02/24 17:14 15 mg ONCE ONE Administration Morphine Sulfate 4 mg 02/02/24 14:41 02/02/24 14:57 Morphine 4mg/Ml Syringe IV 02/02/24 14:42 4 mg ONCE ONE Administration Ondansetron HCl 4 mg 02/02/24 14:41 02/02/24 14:58 Ondansetron 4mg/2ml Vial IV 02/02/24 14:42 4 mg ONCE ONE Administration Ondansetron HCl 4 mg 02/02/24 17:15 02/02/24 17:22 Ondansetron 4mg/2ml Vial IV 02/02/24 17:16 4 mg ONCE ONE Administration Sodium Chloride 10 ml 02/02/24 15:18 02/02/24 15:19 Sodium Chloride 0.9% 10ml Syr (Rad Only) IV 03/03/24 15:17 10 ml NEEDED PRN Administration Maintain IV Site ORDERS Category Date Time Status CT abdomen pelvis w con Stat Cat Scan 02/02/24 14:41 Completed Complete Blood Count Auto Diff Stat Lab 02/02/24 14:14 Completed Comprehensive Metabolic Panel Stat Lab 02/02/24 14:14 Completed HIV (1&2) Antibody Rapid Stat Lab 02/02/24 14:14 Completed Hep C Ab with Reflex to RNA Stat Lab 02/02/24 14:14 Received Lactic Acid Stat Lab 02/02/24 14:55 Completed Lipase Stat Lab 02/02/24 14:14 Completed Urinalysis and Microscopic Stat Lab 02/02/24 14:14 Completed Urine Culture Stat Micro 02/02/24 14:48 Received Medical Decision Narrative: In summary, this 58-year-old female presents to the emergency department today with flank pain. On initial evaluation patient is afebrile, hemodynamically stable in no acute distress. On exam, is warm and well-perfused with full pulses in all extremities. She has reproducible right flank pain and right lower quadrant tenderness as well as epigastric tenderness, but no rebound or guarding nor peritoneal signs.. Differential diagnosis includes but is not limited to nephrolithiasis, ureterolithiasis, pyelonephritis, infected kidney. Based on these concerns, I ordered CBC CMP lipase lactate urinalysis CT abdomen pelvis with IV contrast. Patient received morphine, Zofran for treatment. Labs personally reviewed demonstrate no leukocytosis,No significant electrolyte derangement, positive urinalysis for infection with nitrite positivity leuk esterase and 20-50 white blood cells On reassessment patient reports improvement in her pain. Given infected urine, will treat with 2 g of Rocephin IV here. She will also be sent home on cefdinir. However, pending CT scan to rule out infected stone. Of note, social determinants of health include poor health literacy. <Marlene Fox, DO - Last Filed: 02/02/24 18:05> Vital Signs: 02/02/24 14:02 02/02/24 14:05 02/02/24 15:33 Temperature 98.1 F Temperature Source Oral Pulse Rate 84 71 Pulse Rate [Left Radial] 81 Respiratory Rate 16 Blood Pressure 133/91 H 104/67 L Blood Pressure [Right Arm] 133/91 H Blood Pressure Mean [Right Arm] 105 02 Sat by Pulse Oximetry 99 97 94 L Oxygen Delivery Method Room Air Room Air 02/02/24 16:00 02/02/24 16:30 02/02/24 17:30 Temperature 98.0 F Temperature Source Pulse Rate 73 68 66 Pulse Rate [Left Radial] Respiratory Rate 16 Blood Pressure 114/79 121/84 140/86 Blood Pressure [Right Arm] Blood Pressure Mean [Right Arm] 02 Sat by Pulse Oximetry 98 99 Oxygen Delivery Method Room Air Room Air Room Air Lab Data Lab Results 02/02/24 14:14: WBC 9.3, RBC 4.32, Hgb 13.8, Hct 40.0, MCV 92.6, MCH 32.0 H, MCHC 34.5, RDW 12.9, Plt Count 278, MPV 7.4, Neut % (Auto) 75.2, Lymph % (Auto) 17.5, [place] % (Auto) 5.6, Eos % (Auto) 1.2, Baso % (Auto) 0.5, Neut # (Auto) 7.0, Lymph # (Auto) 1.6, [place] # (Auto) 0.5, Eos # (Auto) 0.1, Baso # (Auto) 0.1, Sodium 139, Potassium 3.8, Chloride 102, Carbon Dioxide 23, Anion Gap 17.8 H, BUN 15, Creatinine 1.00, Estimated Creat Clear 62, Estimated GFR 57 L, Est GFR ( Amer) 69, Glucose 105 H, Calcium 10.1, Total Bilirubin 1.0, AST 50 H, ALT 31, Alkaline Phosphatase 86, Total Protein 8.5 H, Albumin 5.4 H, Globulin 3.1, Albumin/Globulin Ratio 1.7, Lipase 202, Urine Color Yellow, Urine Appearance Clear, Urine pH 6.0, Ur Specific [place] 1.020, Urine Protein 2+ A, Urine Glucose (UA) Trace, Urine Ketones 1+, Urine Blood 2+ A, Urine Nitrate Positive A, Urine Bilirubin 1+ A, Urine Urobilinogen 4.0, Ur Leukocyte Esterase 2+ A, Urine RBC Occasional, Urine WBC 20-50, Ur Squamous Epith Cells 3-5, HIV 1&2 Antibody Rapid Nonreactive 02/02/24 14:55: Lactate 1.4 Orders (Tests/Meds): ED MEDICATIONS Discontinued Medications Generic Name Dose Route Start Last Admin Trade Name Jayne PRN Reason Stop Dose Admin Ceftriaxone Sodium 2 gm/ 100 mls @ 200 mls/hr 02/02/24 16:00 02/02/24 16:17 Sodium Chloride IV 02/12/24 15:59 200 mls/hr Q24H MARITZA Administration Iopamidol 75 ml 02/02/24 15:18 02/02/24 15:19 Iopamidol-370 (76%);100ml Bottle IV 02/02/24 15:19 75 ml ONCE ONE Administration Ketorolac Tromethamine 15 mg 02/02/24 17:13 02/02/24 17:22 Ketorolac 30mg/Ml Vial IV 02/02/24 17:14 15 mg ONCE ONE Administration Morphine Sulfate 4 mg 02/02/24 14:41 02/02/24 14:57 Morphine 4mg/Ml Syringe IV 02/02/24 14:42 4 mg ONCE ONE Administration Ondansetron HCl 4 mg 02/02/24 14:41 02/02/24 14:58 Ondansetron 4mg/2ml Vial IV 02/02/24 14:42 4 mg ONCE ONE Administration Ondansetron HCl 4 mg 02/02/24 17:15 02/02/24 17:22 Ondansetron 4mg/2ml Vial IV 02/02/24 17:16 4 mg ONCE ONE Administration Sodium Chloride 10 ml 02/02/24 15:18 02/02/24 15:19 Sodium Chloride 0.9% 10ml Syr (Rad Only) IV 03/03/24 15:17 10 ml NEEDED PRN Administration Maintain IV Site ORDERS Category Date Time Status CT abdomen pelvis w con Stat Cat Scan 02/02/24 14:41 Completed Complete Blood Count Auto Diff Stat Lab 02/02/24 14:14 Completed Comprehensive Metabolic Panel Stat Lab 02/02/24 14:14 Completed HIV (1&2) Antibody Rapid Stat Lab 02/02/24 14:14 Completed Hep C Ab with Reflex to RNA Stat Lab 02/02/24 14:14 Received Lactic Acid Stat Lab 02/02/24 14:55 Completed Lipase Stat Lab 02/02/24 14:14 Completed Urinalysis and Microscopic Stat Lab 02/02/24 14:14 Completed Urine Culture Stat Micro 02/02/24 14:48 Received Medical Decision Narrative: In summary, this 58-year-old female presents to the emergency department today with flank pain. On initial evaluation patient is afebrile, hemodynamically stable in no acute distress. On exam, is warm and well-perfused with full pulses in all extremities. She has reproducible right flank pain and right lower quadrant tenderness as well as epigastric tenderness, but no rebound or guarding nor peritoneal signs.. Differential diagnosis includes but is not limited to nephrolithiasis, ureterolithiasis, pyelonephritis, infected kidney. Based on these concerns, I ordered CBC CMP lipase lactate urinalysis CT abdomen pelvis with IV contrast. Patient received morphine, Zofran for treatment. Labs personally reviewed demonstrate no leukocytosis,No significant electrolyte derangement, positive urinalysis for infection with nitrite positivity leuk esterase and 20-50 white blood cells On reassessment patient reports improvement in her pain. Given infected urine, will treat with 2 g of Rocephin IV here. She will also be sent home on cefdinir. However, pending CT scan to rule out infected stone. Of note, social determinants of health include poor health literacy. DO Ruddy: On my assessment of the patient, she is lying in bed in no acute distress and states she is feeling better. Urinalysis is concerning for infection. Patient has no significant leukocytosis, fever, tachycardia, or other issues to suggest sepsis. CT scan concerning for stable SMA stenosis, which I discussed with the patient and advised she can follow-up closely with her primary care provider. Given 2+ proteinuria and flank pain, concern for pyelonephritis, which I feel will insufficiently be treated with Macrobid. Will plan to treat outpatient with cephalosporins. Patient was given IV Toradol and Zofran here as well as IV Rocephin. She was discharged with prescriptions for cefdinir, Toradol, Zofran. Strict return precautions were given as well as instructions for close follow-up with primary care. Critical Care <Eric Middleton MD - Last Filed: 02/02/24 17:41> Critical Care Time Critical Care Time: No
--- NOTE | 2024-02-02 14:32 | PC.NURSE ---
er at bedside
--- NOTE | 2024-02-02 14:41 | CT_ITS ---
PROCEDURE INFORMATION: Exam: CT Abdomen And Pelvis With Contrast Exam date and time: 02/02/2024 3:17 PM Age: 58 years old Clinical indication: Other: R flank pain rad to rlq, stone vs. Appy TECHNIQUE: Imaging protocol: Computed tomography of the abdomen and pelvis with contrast. Radiation optimization: All CT scans at this facility use at least one of these dose optimization techniques: automated exposure control; mA and/or kV adjustment per patient size (includes targeted exams where dose is matched to clinical indication); or iterative reconstruction. Contrast material: ISOVUE; Contrast volume: 75 ml; Contrast route: IV; COMPARISON: CT ABDOMEN PELVIS W CON 08/31/2021 4:23 AM FINDINGS: Liver: Normal. No mass. Gallbladder and biliary ducts: Gallbladder unremarkable Pancreas: Pancreas unremarkable Spleen: The spleen is unremarkable. Adrenal glands: Adrenal glands unremarkable. Kidneys and ureters: No hydronephrosis. Stomach and bowel: Apparent wall thickening in the colon may be secondary to incomplete filling versus mild colitis. Clinically correlate. Appendix: No evidence of appendicitis. Intraperitoneal space: Unremarkable. No free air. No significant fluid collection. 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 Findings unchanged since 08/31/2021. Lymph nodes: Unremarkable. No enlarged lymph nodes. Urinary bladder: Unremarkable as visualized. Reproductive: Unremarkable as visualized. Bones/joints: Unremarkable. No acute fracture. Soft tissues: Unremarkable. 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 Findings unchanged since 08/31/2021. No evidence of acute abnormality.
[2024-02-02 14:50] LABS: Microscopic, Urine URINE MICROSCOPIC (MICROSCOPIC)
[2024-02-02] MEDS: MORPHINE 4MG/ML SYRINGE 4 MG IV (14:57)
[2024-02-02] MEDS: ONDANSETRON 4MG/2ML VIAL 4 MG IV ×2 (14:58→17:22)
[2024-02-02 15:02] LABS: Albumin Level 5.4 g/dl (3.5-5.0); Appearance,Urine CLEAR (Clear); Basophils # 0.1 K/mm3 (0-0.2); Basophils % 0.5 % (0.1-2.0); Blood, Urine 2+ (Negative); Chloride 102 mmol/L (98-107); Color,Urine YELLOW (Yellow); Eosinophils # 0.1 K/mm3 (0.0-0.4); Eosinophils % 1.2 % (0.1-12.0); Glucose,Urine (UA) TRACE (Negative); Hemoglobin 13.8 g/dL (12.2-16.2); Ketones,Urine 1+ (Negative); Leukocyte Esterase,Urine 2+ (Negative); Lymphocytes # 1.6 K/mm3 (0.7-4.5); Lymphocytes % 17.5 % (10-50); Mean Corpuscular HGB Conc 34.5 g/dL (31.8-35.4); Mean Corpuscular Volume 92.6 fl (81-99); Mean Platelet Volume 7.4 fl (7.4-10.4); Monocytes # 0.5 K/mm3 (0.1-1.0); Monocytes % 5.6 % (1.7-9.3); Neutrophils % 75.2 % (37.0-80.0); Nitrate,Urine POSITIVE (Negative); Platelet Count 278 K/mm3 (142-424); Protein,Urine 2+ (Negative); Red Blood Count 4.32 M/mm3 (4.20-5.40); Red Cell Distribution Width 12.9 % (11.5-17.5); Sodium 139 mmol/L (136-145); White Blood Count 9.3 K/mm3 (4.8-10.8)
[2024-02-02 15:03] LABS: Potassium 3.8 mmoL/L (3.5-5.1)
[2024-02-02 15:05] LABS: Alanine Aminotransferase 31 U/L (12-78); Albumin/Globulin Ratio 1.7 (1.1-1.8); Alkaline Phosphatase 86 U/L (38-126); Anion Gap 17.8 mEq/L (5-15); Aspartate Amino Transferase 50 U/L (14-36); Blood Urea Nitrogen 15 mg/dl (7-17); Carbon Dioxide 23 mmol/L (22.0-30.0); Creatinine Clearance Estimated 62 mL/min (50-200); Estimated Glomerular Filt Rate 57 ml/min (>60); GFR (African American) 69 ML/MIN (>60); Globulin 3.1 g/dL (1.3-3.2); Total Protein,Serum 8.5 g/dl (6.3-8.2)
[2024-02-02 15:06] LABS: Calcium 10.1 mg/dl (8.4-10.2); Glucose 105 mg/dl (74-100); Lipase 202 U/L (23-300)
[2024-02-02 15:07] LABS: Bilirubin,Urine 1+ (Negative)
[2024-02-02 15:12] LABS: Lactic Acid 1.4 mmol/L (0.7-2.1)
[2024-02-02] MEDS: IOPAMIDOL-370 (76%);100ML BOTTLE 75 ML IV (15:19)
[2024-02-02] MEDS: SODIUM CHLORIDE 0.9% 10ML SYR (RAD ONLY) 10 ML IV (15:19)
[2024-02-02 15:33] VITALS: BP 104/67; PULSE 71; O2SAT 94
[2024-02-02 15:35] LABS: RBC,Urine Occasional #/hpf (0-3); WBC,Urine 20-50 #/hpf (0-3)
[2024-02-02 16:00] VITALS: BP 114/79; PULSE 73; O2SAT 98
[2024-02-02 16:15] LABS: HIV (1&2) Antibody Rapid NONREACTIVE (NONREACTIVE)
[2024-02-02] MEDS: CEFTRIAXONE SODIUM 2 GM in 0.9 % SODIUM CHLORIDE 100 ML IV (16:17)
--- NOTE | 2024-02-02 16:27 | PC.NURSE ---
call made to RAD for update on abd/pelvis CT, duc with rad states, it is being read right now.
[2024-02-02 16:30] VITALS: BP 121/84; PULSE 68; O2SAT 99
[2024-02-02] MEDS: KETOROLAC 30MG/ML VIAL 15 MG IV (17:22)
[2024-02-02 17:30] VITALS: BP 140/86; PULSE 66; RESP 16; TEMP 36.7; O2SAT 98
[2024-02-04 09:16] LABS: HCV Ab Non Reactive (Non Reactive)
== END 2024-02-02 17:31 | disposition home or self-care (01) ==
PROVIDERS: Emergency Provider Emergency Medicine; PCP Nurse Practitioner
DX: N12 Tubulo-interstitial nephritis, not specified as acute or chronic (principal); R10.31 Right lower quadrant pain; R30.0 Dysuria; R33.9 Retention of urine, unspecified
CPT/HCPCS: 74177; 80053; 81001; 83605; 83690; 85025; 86803; 87086; 87389; 96374; 96375; 99285; J0696; J1885; J2270; J2405; Q9967

== ENCOUNTER 2024-11-11 14:47 | Outpatient (CLI) | payer BC, SELFPAY ==
--- OUTSIDE RECORDS SUMMARY | 2024-11-11 14:50 | XMS_ITS | Clinical Summary ---
Author Organization 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 Active omeprazole (PRILOSEC) 20 mg Oral Capsule, Delayed Release(E.C.) Take 20 mg by mouth daily. Active plecanatide (TRULANCE) 3 mg Oral Tablet Take 3 mg by mouth daily. Active diazePAM (VALIUM) 5 mg Oral Tablet Take 5 mg by mouth as needed for Anxiety. Active bisoprolol (ZEBETA) 5 mg Oral Tablet Take 5 mg by mouth daily. Active Active Problems Problem Noted Date Diagnosed Date SVT (supraventricular tachycardia) 12/30/2017 Status post placement of implantable loop record er Overview (08/04/2019): [facility] ILR implant 08/02/2017 (Dr. Shah) Surgical History Surgery Date Site/Laterality Comments OTHER SURGICAL HISTORY 08/02/2017 [facility] Confirm Rx ILR-Dr. Shah Medical History Medical History Date Comments SVT (supraventricular tachycardia) 12/30/2017 Status post placement of imp lantable loop recorder [facility] ILR implant 08/02/2017 (Dr Katia Shah) Social History Tobacco Use Types Packs/Day Years Used Date Smoking Tobacco: Former Cigarettes Smokeless Tobacco: Never Comments Unknown Sex and Gender Information Value Date Recorded Sex Assigned at Not on file Legal Sex Female 2:49 PM EDT Gender Identity Not on file Sexual Orientation Not on file Obstetrics History Last Filed Vital Signs Vital Sign Reading Time Taken Comments Blood Pressure 122/88 01/07/2018 2:28 PM EST Pulse 90 01/07/2018 2:28 PM EST Temperature - - Respiratory Rate - - Oxygen Saturation 98% 01/07/2018 2:28 PM EST Inhaled Oxygen Concentration - - Weight 67.2 kg (148 lb 3.2 oz) 01/07/2018 2:28 P M EST Height 162.6 cm (5' 4 ) 01/07/2018 2:28 PM EST Body Mass Index 25.44 01/07/2018 2:28 PM EST Plan of Treatment Health Maintenance Due Date Last Done Comments Annual Wellness Exam 1969 DTaP/TDaP/Td (1 - Tdap) 1985 Hepatitis B Vaccine (1 of 3 - 19+ 3-dose series) 1985 Cervical Cancer Screening 09/03/1987 Pap Smear 09/03/1987 HPV/Pap Cotest 1996 Breast Cancer Screening 2006 Cologuard 09/03/2011 Colon Cancer Screening 09/03/2011 Colonoscopy 09/03/2011 FIT 09/03/2011 Sigmoidoscopy 09/03/2011 Virtual Colonography 09/03/2011 Pneumococcal Vaccine 50+ (1 of 1 - PCV) 2016 Zoster (1 of 2) 2016 COVID-19 Vaccine (1 - 2023-2 5 season) 2024 Influenza Vaccine (#1) 2024 Meningococcal B Vaccine Aged Out No l onger eligible based on patient's age to complete this topic Medical Devices Implanted Type Area Staff Technologist Device Identifier Shelf Expiration Date Model / Serial / Lot [facility] Confirm Rx Icm Implanted:Qty: 1 on 08/02/2017 [facility] [employer] [id number] / [id number] / Insurance JAKI
--- OUTSIDE RECORDS SUMMARY | 2024-11-11 14:50 | XMS_ITS | Clinical Summary ---
Author Organization [facility] Address [address] [place] [address] Care Team Providers Care Buyer Agent Name Role Phone Nathan Diaz MD Primary Care Provider + Allergies No known active allergies Medications Plecanatide (TRULANCE) 3 MG tablet Take 3 mg by mouth Daily. Active sucralfate (CARAFATE) 1 g tablet Take 1 g by mouth Daily. Active lisinopril 10 MG tablet 20 mg, hydrochlorothiazide 25 MG tablet 25 mg Take by mouth Daily. Active omeprazole (priLOSEC) 20 MG capsule Take 20 mg by mouth Daily. Active diazePAM (VALIUM) 5 MG tablet Take 5 mg by mouth 2 (Two) Times a Day As Needed for Anxiety. Active bisoprolol (ZEBeta) 5 MG tablet Take 5 mg by mouth Daily. 07/09/19 19 Active Active Problems No known active problems Family History Medical History Relation Name Comments Heart disease Brother 1 Heart disease Brother 2 Hyperlipidemia Mother Hypertension Mother Relation Name Status Comments Brother 1 Brother 2 Father Mother Alive Social History Tobacco Use Types Packs/Day Years Used Date Smoking Tobacco: Former Cigarettes Q uit: 02/07/2016 Smokeless Tobacco: Never Alcohol Use Standard Drinks/Week Comments Yes 30 (1 standard drink = 0.6 oz pu re alcohol) 12 pack a day on weekends AUDIT-C Answer Date Recorded Frequency of Alcohol Consumption Never 06/17/2018 Average Number of Drinks Not on file 019 Frequency of Binge Drinking Not on file 05/27 Abuse Screen Answer Date Recorded Unsafe at Home or Work/School Not on file Feels Threatened by Someone? Not on file 01/2023 Does Anyone Keep You from Co ntacting Others or Doint Things Outside the Home? Not on file 12/06/2022 Physical Sign of Abuse Present Not on file 1 Housing Stability Answer Date Recorded Current Living Arrangements Not on file 11/25 Potentially Unsafe Housing Conditions Not on louis e 12/06/2022 Family and Community Support Answer Carlo e Recorded Help with Day-to-Day Activities Not on file 12/06/2022 Lonely or Isolated Not on file 12/06/2022 Employment Answer Date Recorded Do you want help finding or keeping work or a enrico b? Not on file 12/06/2022 Disabilities Answer Date Recorded Concentrating, Remembering, or Making Decisions Difficulty Not on file 12/06/2022 Doing Errands Independently Difficulty Not on fi le 12/06/2022 Education Answer Date Recorded Help with school or training? Not on file Preferred Language Not on file 12/06/2022 Comments Unknown Sex and Gender Information Value Date Recorded Sex Assigned at Not on file Legal Sex Female 1:21 PM EDT Gender Identity Not on file Sexual Orientation Not on file Last Filed Vital Signs Vital Sign Reading Time Taken Comments Blood Pressure 124/70 07/11/2018 1:40 PM EDT Pulse 83 07/11/2018 1:40 PM EDT Temperature - - Respiratory Rate - - Oxygen Saturation 98% 07/11/2018 1:40 PM EDT Inhaled Oxygen Concentration - - Weight 63 kg (139 lb) 07/11/2018 1:40 PM EDT Height 157.5 cm (5' 2 ) 07/11/2018 1:40 PM EDT Body Mass Index 25.42 07/11/2018 1:40 PM EDT Plan of Treatment Health Maintenance Due Date Last Done Comments Annual Gynecologic Pelvic and Breast Exam 1966 TDAP/TD VACCINES (2 - Tdap) 05/02/2006 05/02/1996 MAMMOGRAM 2006 COLOGUARD 09/03/2011 COLON CANCER SCREENING 5 YEAR SIGMOIDOSCOPY 09/03/2011 COLONOSCOPY 09/03/2011 COLORECTAL CANCER SCREENING 09/03/2011 CT COLONOGRAPHY 09/03/2011 FECAL OCCULT BLOOD TEST 09/03/2011 FIT Testing (1 year) 09/03/2011 Pneumococcal Vaccine 50+ (1 of 1 - PCV) 2016 ZOSTER VACCINE (1 of 2) 2016 ANNUAL PHYSICAL 06/16/2018 HEPATITIS C SCREENING 06/16/2018 COVID-19 Vaccine ( season) 2024 INFLUENZA VACCINE 11/25/2024 Insurance [employer] Care Teams Buyer Agent Relationship Specialty Start Date End Date Nathan Diaz MD PCP - General Family Medicine 05/14/18
--- OUTSIDE RECORDS SUMMARY | 2024-11-11 14:50 | XMS_ITS | Clinical Summary ---
Author Organization [facility] Address [address] [place] [address] Care Team Providers Care Railroad Repairer Name Role Phone Spencer Lindo MD Primary Care Provider [phone] Social History Tobacco Use Types Packs/Day Years Used Date Smoking Tobacco: Never Alcohol Use Standard Drinks/Week Comments Yes 0 (1 standard drink = 0.6 oz pure alcohol) Alcoholic Drinks/day: Daily alcohol use Comments Unknown Sex and Gender Information Value Date Recorded Sex Assigned at Not on file Legal Sex Female 8:34 PM EDT Gender Identity Not on file Sexual Orientation Not on file Plan of Treatment Health Maintenance Due Date Last Done Comments [facility]-Depression Screening 1966 [facility]-/Child/Adol SDOH Screenings 1966 [facility]- SDOH Screenings 1984 [facility]-Adult SDOH Screenings 1984 [facility]-Hepatitis B Vaccines (1 of 3 - 19+ 3-dose series) 1985 [facility]-Pap Smear 09/03/1987 [facility]-DTaP,Tdap,and Td Vaccine s (1 - Tdap) 05/03/1996 05/02/1996 [facility]-Cervical Cancer Screening 1996 [facility]-HPV/Cotest 1996 CT Colonography 09/03/2011 Colonoscopy 09/03/2011 FIT-DNA 09/03/2011 FIT 09/03/2011 FOBT 09/03/2011 Sigmoidoscopy 09/03/2011 [facility]-Colorectal Cancer Screening 09/03/2011 [facility]-Pneumococcal Vaccine: 50 + Years (1 of 1 - PCV) 2016 [facility]-Zoster Vaccines (1 of 2) 2016 [id number] Vaccine (1 - 2023- season) 2024 [facility]-Influenza Vaccine (#1) 2024 [facility]-Hepatitis A Vaccines Aged Out 019, 12/19/2017 No longer eligible based on patient's age to complete this topic HPV Vaccines Aged Out No longer eligi ble based on patient's age to complete this topic [facility]-HIB Vaccines Aged Out No longer e ligible based on patient's age to complete this topic [facility]Y-IPV Vaccines Aged Out No longer e ligible based on patient's age to complete this topic [facility]Y-Rotavirus Vaccines Aged Out No lo nger eligible based on patient's age to complete this topic Insurance [facility] [place] [place] [id number] JAKI Care Teams Railroad Repairer Relationship Specialty Start Date End Date Spencer Lindo MD [address] [place] [address] [address]1 FREDERIC Sheehan [phone] PCP - General 07/08/20
[2024-11-11 15:40] LABS: Hematocrit 38.1 % (37.0-47.0); Hemoglobin 12.6 g/dL (12.2-16.2); Immature Granulocytes % 0.2 %; Mean Corpuscular HGB Conc 33.1 g/dL (31.8-35.4); Mean Corpuscular Hemoglobin 31.4 pg (27.0-31.2); Mean Corpuscular Volume 95.0 fl (81-99); Nucleated Red Blood Cells % 0 %; Platelet Count 231 K/mm3 (142-424); Red Blood Count 4.01 M/mm3 (4.20-5.40); Red Cell Distribution Width-SD 42.6 fL; White Blood Count 5.8 K/mm3 (4.8-10.8)
[2024-11-11 16:47] LABS: Alanine Aminotransferase 27 U/L (12-78); Albumin Level 4.7 g/dl (3.5-5.0); Alkaline Phosphatase 74 U/L (38-126); Anion Gap 13.1 mEq/L (5-15); Aspartate Amino Transferase 36 U/L (14-36); Bilirubin,Direct 0.1 mg/dl (0.0-0.4); Bilirubin,Indirect 0.3 mg/dL (0.0-0.9); Bilirubin,Total 0.4 mg/dl (0.2-1.3); Bilirubin,Unconjugated 0.3 mg/dL (0.0-1.1); Blood Urea Nitrogen 16 mg/dl (7-17); Calcium 9.9 mg/dl (8.4-10.2); Carbon Dioxide 28 mmol/L (22.0-30.0); Chloride 100 mmol/L (98-107); Cholesterol 141 mg/dl (140-200); Creatinine,Serum 0.80 mg/dl (0.52-1.04); Estimated Glomerular Filt Rate 74 ml/min (>60); GFR (African American) 89 ML/MIN (>60); Glucose 102 mg/dl (74-100); HDL Cholesterol 47 mg/dl (40-60); Magnesium 1.6 mg/dl (1.6-2.3); Potassium 4.1 mmoL/L (3.5-5.1); Sodium 137 mmol/L (136-145); Total Protein,Serum 7.1 g/dl (6.3-8.2); Triglycerides 253 mg/dl (30-150)
[2024-11-11 17:05] LABS: Free T4 (Free Thyroxine) 0.76 ng/dl (0.78-2.19)
[2024-11-11 17:19] LABS: Thyroid Stimulating Hormone 1.67 uIU/mL (0.465-4.68)
== END 2024-11-11 23:59 | disposition home or self-care (01) ==
LOC: LAB 14:47
PROVIDERS: PCP Family Medicine; Visit Provider Internal Medicine
DX: E78.5 Hyperlipidemia, unspecified (principal); I10 Essential (primary) hypertension; I25.10 Atherosclerotic heart disease of native coronary artery without angina pectoris
CPT/HCPCS: 36415; 80048; 80061; 80076; 83735; 84439; 84443; 85025

== ENCOUNTER 2024-12-09 17:45 | Emergency (ER) | payer BC, SELFPAY ==
[2024-12-09 17:56] VITALS: BP 141/88; PULSE 78; RESP 16; TEMP 36.6; O2SAT 98; BMI 24.0
--- OUTSIDE RECORDS SUMMARY | 2024-12-09 18:00 | XMS_ITS | Data Portability ---
Author Organization [facility] Address [address] [place] [id number] Assessment Encounter Date Assessment Date Assessment LastModified by Organization Details LastModified Time 05/22/2022 05/22/2022 56-year-old female with heartburn, lower abdominal pain, and recent hematochezia -EGD and colonoscopy scheduled for further evaluation -Continue Omeprazole -f/u 7-10 days after endoscopy [email or web address] Not available 05/22/2022 13:01:22 Plan of Treatment Reminders Order Date Submit Date Provider Last Modified By Organization Details Last Modified Time Details Appointments None record ed. Lab None record ed. Referral None record ed. Procedures None record ed. Surgeries None record ed. Imaging None record ed. Medication Orders None record ed. Patient TargetsNo targets recorded. Patient InstructionsNo instructions recorded. Reason for Referral None Reported. Results Created Date Observation Date Name Description Value Unit Range Abnormal Flag Note LastModifiedBy Organization Detail LastModifiedTime 05/23/1903/28/2022 CT, angio gram, carot id arter ies, w/wo contr ast No observ ation record ed. [email or web address] Not Available 2022 15:56:20 Result Notes None recorded. Problems Name Problem SNOMED Code Status Onset Date Resolution Date Notes Provider Name and Address Organization Details Recorded Time Thoracic aneurysmectomy Active 2022 Rachele post [facility] & [place] 11:03:16 Problem Notes None recorded. Medical Equipment None Reported. Allergies No known drug allergies Medications Name Sig Start Date Stop Date Status Note LastModified by Organization Details LastModified Time Miralax 17 gram oral powder packet Take 5 packets 3 times a day by oral route as directed. 2022 active Not Available Not Available Not Avai lable atorvastati n 40 mg tablet TAKE ONE TABLET BY MOUTH EVERY NIGHT AT BEDTIME active Not Available Not Available No t Available irbesartan 150 mg-hydrochl orothiazide 12.5 mg tablet TAKE TWO TABLETS BY MOUTH EVERY DAY active Not Available Not Available No t Available azithromyci n 250 mg tablet TAKE 2 TABLETS BY MOUTH ON DAY 1, THEN TAKE 1 TABLET DAILY ON DAYS 2-5 05/22 completed Not Available Not Available Not Available fluconazole 150 mg tablet TAKE ONE TABLET BY MOUTH A ONE-TIME DOSE, MAY REPEAT IN 72 HOURS IF NEEDED 05/22 completed Not Available Not Available Not Available sucralfate 1 gram tablet TAKE ONE TABLET BY MOUTH FOUR TIMES DAILY ON an EMPTY stomach 05/22 completed Not Available Not Available Not Available ondansetron HCl 4 mg tablet TAKE ONE TABLET BY MOUTH EVERY 6 HOURS 05/22 completed Not Available Not Available Not Available omeprazole 40 mg capsule,del ayed release TAKE ONE CAPSULE BY MOUTH TWICE DAILY active Not Available Not Available No t Available aspirin 81 mg tablet,astrid yed release TAKE ONE TABLET BY MOUTH EVERY DAY active Not Available Not Available No t Available spironolact one 25 mg tablet TAKE ONE TABLET BY MOUTH EVERY DAY active Not Available Not Available No t Available bisoprolol fumarate 10 mg tablet TAKE ONE TABLET BY MOUTH EVERY DAY active Not Available Not Available No t Available cephalexin 500 mg capsule TAKE ONE CAPSULE BY MOUTH TWICE DAILY FOR 7 DAYS -- FINISH ALL MEDICINE -- 05/22 completed Not Available Not Available Not Available levofloxaci n 500 mg tablet TAKE ONE TABLET BY MOUTH EVERY DAY FOR 7 DAYS -- FINISH ALL MEDICINE -- 05/22 completed Not Available Not Available Not Available diazepam 5 mg tablet TAKE ONE TABLET BY MOUTH EVERY DAY NEEDED FOR ANXIETY MAY CAUSE DROWSINES S active Not Available Not Available No t Available Clenpiq 10 mg-3.5 gram-12 gram/160 mL oral solution drink 1 5.4 oz bottle at 5 pm followed by 5 cups of clear liquid. Repeat 6 hours before procedure . 2022 active Not Available Not Available Not Jay varghese Clenpiq 10 mg-3.5 gram-12 gram/175 mL oral solution drink 175 ML BY MOUTH DAILY FOR 2 doses; take THE first DOSE AT 5pm THE evening BEFORE THE colonosco py. Follow with 5 cups of CLEAR liquid; THEN REPEAT THE NEXT DAY 6 hours BEFORE colonosco py active Not Available Not Available No t Available Vitals Date Recorded Body weight Systolic And Diastolic Provider Name and Address Organization Details Last Updated DateTime 05/22/2022 17917.3 g 110/81 mm[Hg] Rachele HUGHES [facility] & [place] 05/22/2022 10:55:49 Social History None recorded. Functional Status None recorded. Mental Status None recorded. Family History Nothing Reported. Medical History No medical history recorded. Gynecological HistoryNo gynecological history recorded. Obstetrics History GPAL:G 0 P 0 0 0 0 Immunizations Vaccine Type Date Status Note Provider Nam e and Address Organization Details Recorded Time Td (adult), 2 Lf tetanus toxoid, preservative free, adsorbed 7 completed Rachele post, FREDERIC ELLEN [facility] [place] 05/22/2022 10:57:22 Hep A, adult 9 completed Rachele post, FREDERIC HUGHES [facility] [place] 05/22/2022 10:57:22 Hep A, adult 8 completed Rachele post, FREDERIC Schwartz LPNT [facility] [place] 05/22/2022 10:57:22 Past Encounters Encounter ID Performer Location Encounter Start Date Encounter Closed Date Diagnosis/Indication Diagnosis SNOMED-CT Code Diagnosis ICD10 Code Diagnosis IMO Codes Diagnosis Note [id number] Odell Parker PA-C [facility] [address] [phone] 05/22/2022 10:38:45 05/22/2022 11:35:25 Health Concerns Section Related Observation LastModified by Organization Detai ls LastModified Time None Recorded Concern Status LastModified by Organization Details LastModified Time None Recorded Advance Directives Directive None Recorded Payers Insurance Date Sequence Insurance Name Policy Number Policy Rueda Covered Member ID Rueda Member ID Guarantor Name 08/05/2023 1 CHARISSA-FREDERIC: [place] [id number] Uday Rudd [id number] Uday Rudd Notes Date Note Type Note Provider Name and Address Organization Details Recorded Time 05/22/2022 text/html Ms. Rudd is a 56 yo female who was referred by Dr. Shah for evaluation of heartburn and lower abdominal pain. She has taken Omeprazole 40 mg daily for several years. She has intermittent breakthrough heartburn for which she is using TUMS with good effect. She reports lower abdominal pain that is made worse with spicy and greasy foods. She reports undergoing GB evaluation at [facility] that was unremarkable. She has a history of remote sigmoidoscopy performed in 2011. She states she had a couple of polyps removed at that time. She had a single episode of hematochezia last week that she believes was due to a hemorrhoid. She has not had recurrence of bleeding. Odell Parker PA-C [id number], [place], [address], [facility] [place] [facility] [place] & [place] 05/22/2022 13:01:37 OBGyn Episode No OBEpisode recorded.
--- OUTSIDE RECORDS SUMMARY | 2024-12-09 18:00 | XMS_ITS | Clinical Summary ---
Author Organization [facility] Address [address] [place] [address] Care Team Providers Care Sales Closer Name Role Phone Spencer Lindo MD Primary Care Provider [phone] Social History Tobacco Use Types Packs/Day Years [...] Date Last Done Comments [facility]-Depression Screening 1966 [facility]-Infant/Child/Adol SDOH Screenings 1966 [facility]- SDOH Screenings 1984 [...] 2016 [facility]-Zoster Vaccines (1 of 2) 2016 [id number]-28 Vaccine (1 - 2023- season) 2024 [facility]-Influenza [...] patient's age to complete this topic Insurance [facility] [place] [id number] JAKI Care Teams Sales Closer Relationship Specialty Start Date End Date Spencer Lindo MD [address] [place] [address] [address] FREDERIC Sheehan [phone] PCP - General 07/08/20
--- OUTSIDE RECORDS SUMMARY | 2024-12-09 18:00 | XMS_ITS | Clinical Summary ---
Author Organization [facility] Address [address] [place] [address] Care Team Providers Care Setter Out Name Role Phone Nahtan Diaz MD Primary Care Provider + Allergies [...] ANNUAL PHYSICAL 06/16/2018 HEPATITIS C SCREENING 06/16/2018 INFLUENZA VACCINE 09/25/2024 Insurance [employer] Care Teams Setter Out Relationship Specialty Start Date End Date Nathan Diaz MD PCP - General Family Medicine 05/14/18
--- OUTSIDE RECORDS SUMMARY | 2024-12-09 18:00 | XMS_ITS | Clinical Summary ---
Author Organization [facility] Address [address] [place] [address] Phone Care Team Providers Care Financial Reporting Analyst Name Role Phone Unavailable Primary Care Provider [...] of implantable loop record er Overview (08/04/2019): [facility] ILR implant 08/02/2017 (Dr. Shah) Surgical History Surgery Date Site/Laterality Comments OTHER SURGICAL HISTORY 08/02/2017 [facility] Confirm Rx ILR-Dr. Shah Medical History Medical History Date Comments SVT (supraventricular tachycardia) 12/30/2017 Status post placement of imp lantable loop recorder [facility] ILR implant 08/02/2017 (Dr Katia Shah) Social [...] this topic Medical Devices Implanted Type Area Vegetable Washing Machine Operator Device Identifier Shelf Expiration Date Model / Serial / Lot [facility] Confirm Rx Icm Implanted:Qty: 1 on 08/02/2017 [facility] [facility] [id number] / [id number] / Insurance JAKI
--- NOTE | 2024-12-09 18:04 | [facility]H.EDGENADL ---
Discharge Plan Disposition Patient Disposition: Home, Self-Care Condition: Good Prescriptions Prescriptions: No Action lansoprazole 30 mg capsule,delayed release(DR/EC) 30 mg PO BID Patient Comments: TAKE ONE CAPSULE BY MOUTH TWICE DAILY BEFORE meals as directed bisoprolol fumarate 5 mg tablet See Rx Instructions .ROUTE .COMPLEX Qty: 30 3RF Dose Instruction: TAKE ONE TABLET BY MOUTH EVERY DAY FOR BLOOD PRESSURE Rx Instructions: TAKE ONE TABLET BY MOUTH EVERY DAY FOR BLOOD PRESSURE omeprazole 40 mg capsule,delayed release(DR/EC) See Rx Instructions .ROUTE .COMPLEX Qty: 180 1RF Dose Instruction: TAKE ONE CAPSULE BY MOUTH TWICE DAILY Rx Instructions: TAKE ONE CAPSULE BY MOUTH TWICE DAILY atorvastatin 40 mg tablet See Rx Instructions .ROUTE .COMPLEX Qty: 90 3RF Dose Instruction: TAKE ONE TABLET BY MOUTH EVERY NIGHT AT BEDTIME Rx Instructions: TAKE ONE TABLET BY MOUTH EVERY NIGHT AT BEDTIME spironolactone 25 mg tablet See Rx Instructions .ROUTE .COMPLEX Qty: 90 3RF Dose Instruction: TAKE ONE TABLET BY MOUTH EVERY DAY Rx Instructions: TAKE ONE TABLET BY MOUTH EVERY DAY aspirin 81 mg tablet,delayed release (DR/EC) See Rx Instructions .ROUTE .COMPLEX Qty: 90 4RF Dose Instruction: TAKE ONE TABLET BY MOUTH EVERY DAY Rx Instructions: TAKE ONE TABLET BY MOUTH EVERY DAY irbesartan-hydrochlorothiazide 150-12.5 mg tablet See Rx Instructions .ROUTE .COMPLEX Qty: 180 3RF Dose Instruction: TAKE TWO TABLETS BY MOUTH EVERY DAY Rx Instructions: TAKE one TABLET BY MOUTH EVERY DAY diazepam 5 mg tablet 5 mg PO DAILY PRN (Reason: anxiety) Qty: 30 0RF Referrals Follow up/Referrals: Dewayne Lindo MD [Primary Care Provider, Medical] - See instructions Activity Restrictions/Add. Instructions Additional Instructions/Restrictions: If you develop worsening abdominal pain, fevers, burning with urination, urinary frequency, or blood in the urine please return to the emergency department for further evaluation. Clinical Impressions Clinical Impression: Abdominal pain Qualifiers: Abdominal location: right lower quadrant Qualified Code(s): R10.31 - Right lower quadrant pain Instructions Patient Instructions: DI for Acute Abdominal Pain Print Language Print Language: Citizen Of [place] Discharge ED Provider: Moris Borges Adult HPI <ESTHER Layne - Last Filed: 12/09/24 19:05> General Chief complaint: Abdominal Pain Stated complaint: abdomin pain on right side going into groin Time Seen by Provider: 12/09/24 17:51 Mode of Arrival: Ambulatory Source of Information: Patient Description of Symptoms (Recalled from ER Triage Doc. by RN): Patient complaining of right lower abdominal/groin pain that started about 2 hours ago. Patient states that she saw PCP office earlier today and is supposed to have some testing done of her pancreas and they are supposed to change her Lansoprazole to another medication. History of Present Illness HPI narrative: 59-year-old female presents to the emergency department with a several hour history of right lower quadrant/lower abdominal pain that radiates into the groin area, patient has any trauma or injury per history, denies any fever chills chest pain shortness of breath, no back pain, no numbness or tingling, no upper or lower extremity weakness, no urinary bladder or bowel dysfunction, no nausea no vomiting no constipation no diarrhea, patient does tell me that she has a bad stomach , and that she has seen her primary care doctor for this today, supposed to have some testing of my pancreas , as well as ranging of her GERD medication , patient denies any urinary type symptomatology, admits to hematochezia that has been ongoing for quite some time states I have hemorrhoids , denies any hematuria melena, hematemesis or hemoptysis, no vaginal bleeding, no vaginal discharge. Patient is a former smoker, occasional alcohol use, denies any other illicit drug use, other past medical history is consistent with JOSE, CAD, hypertension, GERD, PND, thoracic ascending aortic aneurysm upon chart review appears stable on last scan at 4.3 cm in 2023. Initial triage vitals are unremarkable. Patient's only other surgical history is a section. Please note that above description of symptoms, in this electronic medical record under categorization of recalled from ER triage doctor by RN are reflective of an initial nursing assessment, however, is not reflective of my full history and physical exam that was personally taken and clarified. Consequentially, this preceding description of symptoms, which may include the patient's categorized chief complaint in the EMR, do not reflect my personal clinical impression, and the ultimate description of history of present illness and patient stated complaints should be deferred to this section of the note. Unless stated otherwise or congruent with this section of the note, additional signs, symptoms, or incongruence should be interpreted as inaccurate with my clinical impression. Onset (ago): hour(s) Related Data Home Medications ?Medication ?Instructions ?Recorded ?Confirmed lansoprazole 30 mg capsule,delayed 30 mg PO BID 11/12/23 11/13/24 release Previous Rx's ?Medication ?Instructions ?Recorded omeprazole 40 mg capsule,delayed See Rx Instructions .Route 06/03/23 release .COMPLEX #180 caps atorvastatin 40 mg tablet See Rx Instructions .Route 03/16/24 .COMPLEX #90 tabs spironolactone 25 mg tablet See Rx Instructions .Route 04/13/24 .COMPLEX #90 tabs aspirin 81 mg tablet,delayed See Rx Instructions .Route 05/25/24 release .COMPLEX #90 tabs bisoprolol fumarate 5 mg tablet See Rx Instructions .Route 09/29/24 .COMPLEX #30 tabs irbesartan 150 See Rx Instructions .Route 12/07/24 mg-hydrochlorothiazide 12.5 mg .COMPLEX #180 tabs tablet diazepam 5 mg tablet 5 mg PO DAILY PRN anxiety #30 tabs 12/08/24 Allergies Allergy/AdvReac Type Severity Reaction Status Date / Time latex Allergy Unknown Unknown Verified 11/13/24 10:55 allergy reaction [facility] <ESTHER Layne - Last Filed: 12/09/24 19:05> [facility] Disclaimer: The information contained in this section may have been updated after the patient was seen, as this information can be updated by other users. Medical History Other forms of dyspnea PND (paroxysmal nocturnal dyspnea) Thoracic ascending aortic aneurysm Coronary artery disease Anxiety Asthma GERD (gastroesophageal reflux disease) HLD (hyperlipidemia) HTN (hypertension) Abnormal electrocardiogram [ECG] [EKG] Dyspnea Grief at loss of child Generalized anxiety disorder Palpitations Surgical History History of delivery Family History Mother Cancer Breast Other Family history of cardiac disorder Social History Smoking Status: Never smoker smoking status stop date: Feb 07, 2016 second hand exposure: No alcohol intake: current alcohol intake frequency: a few times a week counseling given: Yes substance use type: denies use current occupational status: retired Travel in the last 8 weeks?: None adopted: No caregiver/support person: No foster care: No household members: spouse housing: house lives independently: Yes marital status: number of children: 2 number of grandchildren: 0 education level: high school 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; 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 [employer] current occupational exposures/hazards: No pets and animals: No Hx Recent Travel: No sexually active: Yes caffeine: No physical activity: none manuelito/anglican: None special manuelito needs: No do you feel safe at home: Yes victim of physical abuse: No victim of emotional abuse: No victim of sexual abuse: No would you like helpful sources: No Have you lived/traveled outside [place] in past 30 days?: No Contact w/someone who lives/traveled outside US past 30 days?: No Exposure to someone with infectious disease in past 14 days?: No Do you have a fever (greater than 100.4 F or 38 C)?: No Have you tested positive for COVID-19?: No Exposed to someone with COVID-19 in past 14 days?: No Do you have a sore throat?: No Do you have a cough?: No Do you have any weakness?: No Do you have any diarrhea?: No Are you experiencing any unusual bleeding?: No Do you have any muscle aches/pain?: No Do you have any abdominal pain?: No Are you experiencing loss of taste or smell?: No Other Medical History Have you received the Flu Vaccine for this season: No Have you received the Pneumonia Vaccine: No <ESTHER Layne - Last Filed: 12/09/24 19:05> ROS Obtained: Yes All systems reviewed & no additional complaints except as documented Physical Exam <ESTHER Layne - Last Filed: 12/09/24 19:05> General General appearance: alert and in no apparent distress Head Head exam: atraumatic and normocephalic Eye Eye exam: Present PERRL and EOMI ENT ENT exam: Present mucous membranes moist Neck Neck exam: Present normal inspection Chest Chest inspection: Present normal inspection and symmetric chest wall rise Respiratory Respiratory exam: Present normal lung sounds bilaterally; Absent respiratory distress Cardiovascular Cardiovascular exam: Present regular rate and normal rhythm Abdominal Exam Abdominal exam: Present soft and tenderness; Absent guarding, rebound or rigidity Abdominal tenderness: Present RLQ, suprapubic and mild Extremities Exam Extremities exam: Present normal inspection Back Exam Back exam: Absent CVA tenderness (R) or CVA tenderness (L) Neurological Exam Neurological exam: Present alert and oriented X3 Psychiatric Psychiatric exam: Present normal affect Skin Skin exam: Present warm and dry Medical Decision Making <ESTHER Layne - Last Filed: 12/09/24 19:05> Medical Records Medical records reviewed: Yes I reviewed the patient's medical records. Screening: Per USPSTF and CDC recommendations, given the prevalence of disease in our region, it is our hospital?s policy to screen for HIV and viral Hepatitis for all patients aged 18 and over and those with ongoing risk factors. Devin Inquiry Pt receiving controlled substance: Yes Devin was queried for this patient: No Reason not queried -: Emergent pt cond-no time Risks and benefits of using a controlled substance: were discussed with pt by me Vital Signs: 12/09/24 17:56 12/09/24 18:30 Temperature 97.8 F Temperature Source Oral Pulse Rate 76 Pulse Rate [Right Brachial] 78 Respiratory Rate 16 13 Blood Pressure 113/73 Blood Pressure [Right Arm] 141/88 H Blood Pressure Mean [Right Arm] 105 Blood Pressure Source [Right Arm] Automatic Cuff Blood Pressure Position [Right Arm] Sitting 02 Sat by Pulse Oximetry 98 98 Oxygen Delivery Method Room Air Lab Data Lab results reviewed: Yes I reviewed the patient's lab results. Lab Results 12/09/24 18:03: Urine Color Yellow, Urine Appearance Clear, Urine pH 6.0, Ur Specific [place] 1.010, Urine Protein Negative, Urine Glucose (UA) Negative, Urine Ketones Negative, Urine Blood Negative, Urine Nitrate Negative, Urine Bilirubin Negative, Urine Urobilinogen 0.2, Ur Leukocyte Esterase Negative, Urine RBC Occasional, Urine WBC 3-5, Ur Squamous Epith Cells 50-100, Urine Bacteria 3+, Urine Mucus 1+ 12/09/24 18:05: WBC 7.4, RBC 4.25, Hgb 13.5, Hct 39.9, MCV 93.9, MCH 31.8 H, MCHC 33.8, RDW 12.2, Plt Count 247, MPV 9.3, Neut % (Auto) 67.8, Lymph % (Auto) 22.5, Richardson % (Auto) 7.0, Eos % (Auto) 2.0, Baso % (Auto) 0.4, Neut # (Auto) 5.0, Lymph # (Auto) 1.7, Richardson # (Auto) 0.5, Eos # (Auto) 0.2, Baso # (Auto) 0.0, Sodium 137, Potassium 3.5, Chloride 100, Carbon Dioxide 26, Anion Gap 14.5, BUN 21 H, Creatinine 1.00, Estimated Creat Clear 61, Estimated GFR 57 L, Est GFR ( Amer) 69, Glucose 112 H, Calcium 9.5, Total Bilirubin 0.3, AST 43 H, ALT 34, Alkaline Phosphatase 97, Troponin I < 0.01, NT-Pro-B Natriuret Pep 111, Total Protein 7.8, Albumin 4.7, Globulin 3.1, Albumin/Globulin Ratio 1.5, Lipase 243 12/09/24 18:20: Lactate 1.1 12/09/24 19:39: Urine Color Yellow, Urine Appearance Clear, Urine pH 5.5, Ur Specific [place] <= 1.005, Urine Protein Negative, Urine Glucose (UA) Negative, Urine Ketones Negative, Urine Blood Negative, Urine Nitrate Negative, Urine Bilirubin Negative, Urine Urobilinogen 0.2, Ur Leukocyte Esterase Negative 12/09/24 18:05 12/09/24 18:05 Orders (Tests/Meds): ED MEDICATIONS Discontinued Medications Generic Name Dose Route Start Last Admin Trade Name Jayne PRN Reason Stop Dose Admin Iopamidol 75 ml 12/09/24 18:57 12/09/24 18:58 Iopamidol-370 (76%);100ml Bottle IV 12/09/24 18:58 75 ml ONCE ONE Administration Morphine Sulfate 4 mg 12/09/24 18:10 12/09/24 18:20 Morphine 4mg/Ml Syringe IV 12/09/24 18:11 4 mg ONCE ONE Administration Ondansetron HCl 4 mg 12/09/24 18:11 12/09/24 18:20 Ondansetron 4mg/2ml Vial IV 12/09/24 18:12 4 mg ONCE ONE Administration Sodium Chloride 10 ml 12/09/24 18:57 12/09/24 18:58 Sodium Chloride 0.9% 10ml Syr (Rad Only) IV 12/09/24 18:58 10 ml ONCE ONE Administration ORDERS Category Date Time Status CT abdomen pelvis w con Stat Cat Scan 12/09/24 18:09 Completed Complete Blood Count Auto Diff Stat Lab 12/09/24 18:05 Completed Comprehensive Metabolic Panel Stat Lab 12/09/24 18:05 Completed Lactic Acid Stat Lab 12/09/24 18:20 Completed Lipase Stat Lab 12/09/24 18:05 Completed NT Pro Brain Natriuretic Pep. Stat Lab 12/09/24 18:05 Completed Troponin I Q3H Lab 12/09/24 21:15 Ordered Troponin I Q3H Lab 12/10/24 00:15 Ordered Troponin I Stat Lab 12/09/24 18:05 Completed UA [Urinalysis and Microscopic] Stat Lab 12/09/24 18:03 Completed Urinalysis and Microscopic Stat Lab 12/09/24 19:39 Results Urine Culture Stat Micro 12/09/24 18:03 Received ECG Data Tracing #1: I reviewed this ECG and interpreted as documented below: ECG initial impression date: 12/09/24 Normal Sinus Rhythm: Yes Arrhythmias present: PVC's Conduction abnormalities present: LBBB ECG compared to prior tracings: there are no prior tracings available for comparison Medical Decision Narrative: 59-year-old female presents emergency department with right lower quad abdominal pain/suprapubic abdominal pain that she describes as sharp and stabbing, ongoing for the last couple hours, differential diagnose include but not limited to acute UTI, acute pyelonephritis, nephrolithiasis, ureterolithiasis, ileus, bowel obstruction, appendicitis, diverticulitis, pancreatitis, colitis, among others. Will obtain basic laboratory studies, lactic acid level, lipase level, UA, EKG, proBNP troponin, CT ABD and the pelvis with contrast, will give 4 mg IV morphine, 4 mg of Zofran for pain and nausea. CBC unremarkable I reviewed the patient's EKG along with the attending physician, NSR with occasional PVCs, 74 bpm FL interval within normals, QT intervals 400/427, LBBB is present, no STEMI or ischemic changes noted, when reviewing the patient cardiology notes, patient had a similar appearing EKG that was documented by her plaster caster in October 2024, at that time showed occasional PVCs, known LBBB with similar rate. UA is unremarkable CMP is notable for mild BUN elevation at 21, creatinine within normal limits no lactic acidosis minimal AST elevation at 43, lipase within upper limits of normal at 243. proBNP within normal limits I discussed this patient's case with the attending physician Dr. Borges, at shift change, he will be assuming the remainder of the patient's care/workup, disposition is pending laboratory studies and CT abdomen pelvis radiology report. <Moris Borges DO - Last Filed: 12/09/24 20:22> Vital Signs: 12/09/24 17:56 12/09/24 18:30 Temperature 97.8 F Temperature Source Oral Pulse Rate 76 Pulse Rate [Right Brachial] 78 Respiratory Rate 16 13 Blood Pressure 113/73 Blood Pressure [Right Arm] 141/88 H Blood Pressure Mean [Right Arm] 105 Blood Pressure Source [Right Arm] Automatic Cuff Blood Pressure Position [Right Arm] Sitting 02 Sat by Pulse Oximetry 98 98 Oxygen Delivery Method Room Air Lab Data Lab Results 12/09/24 18:03: Urine Color Yellow, Urine Appearance Clear, Urine pH 6.0, Ur Specific [place] 1.010, Urine Protein Negative, Urine Glucose (UA) Negative, Urine Ketones Negative, Urine Blood Negative, Urine Nitrate Negative, Urine Bilirubin Negative, Urine Urobilinogen 0.2, Ur Leukocyte Esterase Negative, Urine RBC Occasional, Urine WBC 3-5, Ur Squamous Epith Cells 50-100, Urine Bacteria 3+, Urine Mucus 1+ 12/09/24 18:05: WBC 7.4, RBC 4.25, Hgb 13.5, Hct 39.9, MCV 93.9, MCH 31.8 H, MCHC 33.8, RDW 12.2, Plt Count 247, MPV 9.3, Neut % (Auto) 67.8, Lymph % (Auto) 22.5, Richardson % (Auto) 7.0, Eos % (Auto) 2.0, Baso % (Auto) 0.4, Neut # (Auto) 5.0, Lymph # (Auto) 1.7, Richardson # (Auto) 0.5, Eos # (Auto) 0.2, Baso # (Auto) 0.0, Sodium 137, Potassium 3.5, Chloride 100, Carbon Dioxide 26, Anion Gap 14.5, BUN 21 H, Creatinine 1.00, Estimated Creat Clear 61, Estimated GFR 57 L, Est GFR ( Amer) 69, Glucose 112 H, Calcium 9.5, Total Bilirubin 0.3, AST 43 H, ALT 34, Alkaline Phosphatase 97, Troponin I < 0.01, NT-Pro-B Natriuret Pep 111, Total Protein 7.8, Albumin 4.7, Globulin 3.1, Albumin/Globulin Ratio 1.5, Lipase 243 12/09/24 18:20: Lactate 1.1 12/09/24 19:39: Urine Color Yellow, Urine Appearance Clear, Urine pH 5.5, Ur Specific [place] <= 1.005, Urine Protein Negative, Urine Glucose (UA) Negative, Urine Ketones Negative, Urine Blood Negative, Urine Nitrate Negative, Urine Bilirubin Negative, Urine Urobilinogen 0.2, Ur Leukocyte Esterase Negative Orders (Tests/Meds): ED MEDICATIONS Discontinued Medications Generic Name Dose Route Start Last Admin Trade Name Freq PRN Reason Stop Dose Admin Iopamidol 75 ml 12/09/24 18:57 12/09/24 18:58 Iopamidol-370 (76%);100ml Bottle IV 12/09/24 18:58 75 ml ONCE ONE Administration Morphine Sulfate 4 mg 12/09/24 18:10 12/09/24 18:20 Morphine 4mg/Ml Syringe IV 12/09/24 18:11 4 mg ONCE ONE Administration Ondansetron HCl 4 mg 12/09/24 18:11 12/09/24 18:20 Ondansetron 4mg/2ml Vial IV 12/09/24 18:12 4 mg ONCE ONE Administration Sodium Chloride 10 ml 12/09/24 18:57 12/09/24 18:58 Sodium Chloride 0.9% 10ml Syr (Rad Only) IV 12/09/24 18:58 10 ml ONCE ONE Administration ORDERS Category Date Time Status CT abdomen pelvis w con Stat Cat Scan 12/09/24 18:09 Completed Complete Blood Count Auto Diff Stat Lab 12/09/24 18:05 Completed Comprehensive Metabolic Panel Stat Lab 12/09/24 18:05 Completed Lactic Acid Stat Lab 12/09/24 18:20 Completed Lipase Stat Lab 12/09/24 18:05 Completed NT Pro Brain Natriuretic Pep. Stat Lab 12/09/24 18:05 Completed Troponin I Q3H Lab 12/09/24 21:15 Ordered Troponin I Q3H Lab 12/10/24 00:15 Ordered Troponin I Stat Lab 12/09/24 18:05 Completed UA [Urinalysis and Microscopic] Stat Lab 12/09/24 18:03 Completed Urinalysis and Microscopic Stat Lab 12/09/24 19:39 Results Urine Culture Stat Micro 10/15/25 18:03 Received Medical Decision Narrative: 59-year-old female presents emergency department with right lower quad abdominal pain/suprapubic abdominal pain that she describes as sharp and stabbing, ongoing for the last couple hours, differential diagnose include but not limited to acute UTI, acute pyelonephritis, nephrolithiasis, ureterolithiasis, ileus, bowel obstruction, appendicitis, diverticulitis, pancreatitis, colitis, among others. Will obtain basic laboratory studies, lactic acid level, lipase level, UA, EKG, proBNP troponin, CT ABD and the pelvis with contrast, will give 4 mg IV morphine, 4 mg of Zofran for pain and nausea. CBC unremarkable I reviewed the patient's EKG along with the attending physician, NSR with occasional PVCs, 74 bpm FL interval within normals, QT intervals 400/427, LBBB is present, no STEMI or ischemic changes noted, when reviewing the patient cardiology notes, patient had a similar appearing EKG that was documented by her plaster caster in October 2024, at that time showed occasional PVCs, known LBBB with similar rate. UA is unremarkable CMP is notable for mild BUN elevation at 21, creatinine within normal limits no lactic acidosis minimal AST elevation at 43, lipase within upper limits of normal at 243. proBNP within normal limits I discussed this patient's case with the attending physician Dr. Borges, at shift change, he will be assuming the remainder of the patient's care/workup, disposition is pending laboratory studies and CT abdomen pelvis radiology report. I was consulted by the KRYSTA, and we discussed the complexity of problems being addressed. I approved the treatment and management plan for this patient's care in the emergency department, thus performing a substantive portion of the medical decision making. Moris Borges, DO This is Dr. Borges. I received handoff of care on this patient at 7 PM at shift change. Agree with KRYSTA assessment and plan above. Would like to add subtle additions to the history after I interviewed the patient independently and obtained collateral history. Patient tells me that this evening she began experiencing very sharp colicky pain lasting only a couple of seconds at a time that radiate from her right lower quadrant down to the groin region. She states that after the onset of these pains it would prompt her to pass a bowel movements. She states that she had this pain approximately 5 times. She is not experiencing any diarrhea, constipation, or urinary symptoms. She has never experienced pain like this before. On my evaluation the patient was completely pain-free. At the time of shift change her labs had resulted and were personally interpreted by me. She has no evidence of leukocytosis, no anemia, no significant electrolyte derangement and no acute kidney injury. Troponin is less than 0.01, LFTs are grossly normal, and she has no elevation of lipase. Urinalysis shows no evidence of urinary tract infection, however the sample is contaminated. CT scan did result and was personally interpreted by me and demonstrated no evidence of urolithiasis. Official radiology read states that there is mild uroepithelial thickening involving the proximal right ureter suggesting either mild pyelonephritis or recent passage of a stone. Given that she is not experiencing fevers or urinary symptoms I do not feel that this presentation is consistent with pyelonephritis. It could be that that sharp colicky sensation she was experiencing with passage of a urinary stone. I have informed the patient of this and we have discussed return precautions including development of fevers, hematuria, dysuria, urinary frequency, or worsening abdominal pain. She acknowledges understanding of return precautions and at this time all parties are agreeable with the decision to discharge home. Critical Care <ESTHER Layne - Last Filed: 12/09/24 19:05> Critical Care Time Critical Care Time: No
--- NOTE | 2024-12-09 18:09 | CT_ITS ---
PROCEDURE INFORMATION: Exam: CT Abdomen And Pelvis With Contrast Exam date and time: 12/09/2024 7:00 PM Age: 59 years old Clinical indication: Abdominal pain; Additional info: Rlq pain, suprapubic pain TECHNIQUE: Imaging protocol: Computed tomography of the abdomen and pelvis with contrast. Radiation optimization: All CT scans at this facility use at least one of these dose optimization techniques: automated exposure control; mA and/or kV adjustment per patient size (includes targeted exams where dose is matched to clinical indication); or iterative reconstruction. Contrast material: ISOVUE; Contrast volume: 75 ml; Contrast route: IV; COMPARISON: CT ABDOMEN PELVIS W CON 02/02/2024 3:17 PM FINDINGS: Lungs: There is a pulmonary parenchymal calcification consistent with remote granulomatous organism exposure. Mild left basilar streaky opacities suggest atelectasis or parenchymal scarring. Pleural spaces: There are no pleural effusions. Heart: The visualized portions of the heart are unremarkable. There is no evidence of pericardial fluid collections. Liver: There is diffuse decrease in hepatic/liver parenchymal density consistent with fatty infiltration. There is a small region of focal fatty infiltration adjacent to the falciform ligament. Gallbladder and biliary ducts: The gallbladder is normal. Pancreas: There is minor pancreatic dilatation involving the proximal and mid pancreas. Pancreas is otherwise within range of normal. Spleen: The spleen is normal. Adrenal glands: The adrenal glands are normal. Kidneys and ureters: There is a focal subcentimeter left renal hypodensity that cannot be further characterized on the current examination. Statistically this is likely a cyst. There is mild stable fullness to the right renal pelvis without ureterectasis. Findings likely reflect an extrarenal pelvis. There is mild right uroepithelial thickening involving the proximal right ureter best seen on series 3, images 49-72 which can be seen with mild pyelonephritis. Correlate clinically. No ureteric stone disease. Stomach and bowel: There are 2 duodenal diverticula. The larger diverticulum is located involving the 2nd portion measuring approximately 3.9 cm with an air-fluid level. Slightly more distally is another diverticulum measuring approximately 3 cm. No evidence of diverticulitis. Apparent mild gastric mural thickening could be on the basis of incomplete distension but cannot exclude gastritis or other inflammatory or infiltrative process. Correlate clinically. Lack of gastrointestinal contrast limits evaluation of bowel. Unopacified loops of small bowel within range of normal. The colon is normal. Appendix: A normal appendix is identified. Intraperitoneal space: No evidence of intraperitoneal free air. There is no evidence of free intraperitoneal or pelvic fluid. Vasculature: There are a few benign phleboliths in the pelvis. There is a small calcification adjacent to the distal right ureter which is most consistent with phlebolith. There is no evidence of an aortic aneurysm. There is no evidence of aortic dissection, leak, rupture, or other acute vascular pathology. Previously seen moderate stenosis involving the mid superior mesenteric artery is stable peeling. Lymph nodes: No enlarged lymph nodes. Urinary bladder: The bladder is normal. Reproductive: The uterus is normal. The ovaries are normal. Bones/joints: There are mild degenerative changes of the sacroiliac joints. The thoracolumbar spine demonstrates mild degenerative changes at multiple levels. There is trace retrolisthesis of L5 on S1. Soft tissues: Unremarkable. IMPRESSION: 1. Mild uroepithelial thickening involving the proximal right ureter suggesting either mild pyelonephritis versus recent or prior stone passage. Correlate clinically. 2. Two duodenal diverticula without evidence of diverticulitis. 3. Fatty hepatic infiltration. 4. Apparent mild gastric mural thickening could be on the basis of incomplete distension but cannot exclude gastritis or other inflammatory or infiltrative process. Correlate clinically. 5. 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 COMMENTS: Consistent with the [employer] [employer]'s Incidental Findings Committee white paper (J Am Mari Radiol 2018): Any incidental renal lesion less than 1 cm or classified as too small to characterize, or any incidental cystic renal lesion characterized as simple-appearing, is likely benign. No follow-up imaging is recommended for these lesions per consensus recommendations based on imaging criteria.
[2024-12-09 18:20] LABS: Microscopic, Urine URINE MICROSCOPIC (MICROSCOPIC)
[2024-12-09 18:20] LABS: Hematocrit 39.9 % (37.0-47.0); Hemoglobin 13.5 g/dL (12.2-16.2); Immature Granulocytes % 0.3 %; Mean Corpuscular HGB Conc 33.8 g/dL (31.8-35.4); Mean Corpuscular Hemoglobin 31.8 pg (27.0-31.2); Mean Corpuscular Volume 93.9 fl (81-99); Nucleated Red Blood Cells % 0 %; Platelet Count 247 K/mm3 (142-424); Red Blood Count 4.25 M/mm3 (4.20-5.40); Red Cell Distribution Width-SD 42.0 fL; White Blood Count 7.4 K/mm3 (4.8-10.8)
[2024-12-09] MEDS: ONDANSETRON 4MG/2ML VIAL 4 MG IV (18:20)
[2024-12-09] MEDS: MORPHINE 4MG/ML SYRINGE 4 MG IV (18:20)
--- NOTE | 2024-12-09 18:23 | ECG_ITS ---
APPROVED REPORT Exam: Resting ECG HR:74 bpm ECG Measurements Heart Rate 74 AXES MT 157 P 28 QRSd 149 QRS -13 QT 400 T 106 QTc 427 Conclusion Sinus rhythm Left axis Left bundle branch block No STEMI Negative Sammy Electronically signed by : Moris Borges, 12/10/2024 03:08:06
[2024-12-09 18:30] VITALS: BP 113/73; PULSE 76; RESP 13; O2SAT 98
[2024-12-09 18:35] LABS: Bilirubin,Urine Negative (Negative); Color,Urine YELLOW (Yellow); Glucose,Urine (UA) Negative (Negative); Ketones,Urine Negative (Negative); Leukocyte Esterase,Urine Negative (Negative); PH,Urine 6.0 (5.0-8.5); Protein,Urine Negative (Negative); Specific Gravity, Urine 1.010 (1.005-1.030); Urobilinogen,Urine 0.2 EU/dl (0.2)
[2024-12-09 18:42] LABS: Albumin Level 4.7 g/dl (3.5-5.0); Chloride 100 mmol/L (98-107)
[2024-12-09 18:43] LABS: Potassium 3.5 mmoL/L (3.5-5.1); Sodium 137 mmol/L (136-145)
[2024-12-09 18:45] LABS: Alanine Aminotransferase 34 U/L (12-78); Aspartate Amino Transferase 43 U/L (14-36); Blood Urea Nitrogen 21 mg/dl (7-17); Creatinine Clearance Estimated 61 mL/min (50-200); Creatinine,Serum 1.00 mg/dl (0.52-1.04); Estimated Glomerular Filt Rate 57 ml/min (>60); GFR (African American) 69 ML/MIN (>60)
[2024-12-09 18:46] LABS: Albumin/Globulin Ratio 1.5 (1.1-1.8); Alkaline Phosphatase 97 U/L (38-126); Anion Gap 14.5 mEq/L (5-15); Bilirubin,Total 0.3 mg/dl (0.2-1.3); Calcium 9.5 mg/dl (8.4-10.2); Carbon Dioxide 26 mmol/L (22.0-30.0); Globulin 3.1 g/dL (1.3-3.2); Glucose 112 mg/dl (74-100); Lipase 243 U/L (23-300); Total Protein,Serum 7.8 g/dl (6.3-8.2)
[2024-12-09 18:55] LABS: NT Pro Brain Natriuretic Pep. 111 pg/mL (0-125)
[2024-12-09] MEDS: IOPAMIDOL-370 (76%);100ML BOTTLE 75 ML IV (18:58)
[2024-12-09] MEDS: SODIUM CHLORIDE 0.9% 10ML SYR (RAD ONLY) 10 ML IV (18:58)
[2024-12-09 19:20] LABS: Bacteria,Urine 3+ /lpf; Mucus,Urine 1+ /lpf; RBC,Urine Occasional #/hpf (0-3); Squamous Epithelial Cell,Urine 50-100 #/hpf (0-5)
[2024-12-09 19:21] LABS: Troponin I < 0.01 ng/ml (0.00-0.034)
--- NOTE | 2024-12-09 19:37 | PC.NURSE ---
pt ambulates with slow steady gait to restroom to attempt to provide urine for testing
[2024-12-09 19:51] LABS: Bilirubin,Urine Negative (Negative); Color,Urine YELLOW (Yellow); Glucose,Urine (UA) Negative (Negative); Ketones,Urine Negative (Negative); Leukocyte Esterase,Urine Negative (Negative); Microscopic, Urine URINE MICROSCOPIC (MICROSCOPIC); PH,Urine 5.5 (5.0-8.5); Protein,Urine Negative (Negative); Specific Gravity, Urine <= 1.005 (1.005-1.030); Urobilinogen,Urine 0.2 EU/dl (0.2)
[2024-12-09 20:26] VITALS: BP 108/72; PULSE 66; RESP 16; TEMP 36.6; O2SAT 96
[2024-12-09 21:04] LABS: Bacteria,Urine 1+ /lpf; RBC,Urine Occasional #/hpf (0-3); WBC,Urine Occasional #/hpf (0-3)
--- NOTE | 2024-12-12 09:08 | PC.NURSE ---
Urine culture reviewed by Dr. Sims. Asked me to call patient and see if she continues to have symptoms. Spoke with patient, confirmed she does. Patient prescribed Cefdinir 300 mg PO BID x 10 days. Advised patient would call in to pharmacy, to finish course of antibiotics and follow up with PCP after finished. Verbalized understanding.
== END 2024-12-09 20:31 | disposition home or self-care (01) ==
PROVIDERS: Physician Assistant; Emergency Provider Student in an Organized Health Care Education/Training Program; PCP Family Medicine
DX: R10.31 Right lower quadrant pain (principal); N39.0 Urinary tract infection, site not specified; I49.3 Ventricular premature depolarization; I44.7 Left bundle-branch block, unspecified; B96.89 Other specified bacterial agents as the cause of diseases classified elsewhere
CPT/HCPCS: 74177; 80053; 81001; 83605; 83690; 83880; 84484; 85025; 87086; 87088; 93005; 96374; 96375; 99285; J2270; J2405; Q9967

== ENCOUNTER 2024-12-21 07:50 | Outpatient (CLI) | payer BC, SELFPAY ==
--- NOTE | 2024-12-21 07:53 | CT_ITS ---
FINAL REPORT TECHNIQUE: After the administration of intravenous contrast, axial images were obtained through the abdomen and pelvis by computed tomography. The study was performed with techniques to keep radiation dose as low as reasonably achievable, (ALARA). Individual dose reduction techniques using automated exposure control or adjustment of mA and/or kV according to the patient's size were employed. CLINICAL HISTORY: LT SIDE ABD PAIN COMPARISON: 12/09/2024 FINDINGS: Abdomen: Scarring is noted at the lung bases. The liver parenchyma is homogeneous. The gallbladder is present. The spleen, pancreas, adrenals and kidneys appear unremarkable. There is a 7 mm benign-appearing cyst in the anterior left kidney. The aorta is normal in caliber. There is no free fluid or adenopathy. Pelvis: The appendix is normal. There is a large amount of stool throughout the colon. Duodenal diverticulum is noted arising from the superior portion of the third portion of the duodenum and appears unchanged from the prior exam. The urinary bladder is unremarkable. The uterus is anteverted. Calcified phleboliths are present in the floor of the pelvis. There is no free fluid or adenopathy. IMPRESSION: Constipation. Duodenal diverticulum. Reviewed, Interpreted and Dictated by Edy Barksdale MD Transcribed by Anay Rivas Authenticated and [facility]
--- OUTSIDE RECORDS SUMMARY | 2024-12-21 07:53 | XMS_ITS | Clinical Summary ---
Author Organization [facility] Address [address] [place] [address] Care Team Providers Care Train System Operator Name Role Phone Nathan Diaz MD Primary [...] C SCREENING 06/16/2018 INFLUENZA VACCINE 09/25/2024 Insurance [employer] Care Teams Train System Operator Relationship Specialty Start Date End Date Nathan Diaz MD PCP - General Family Medicine 05/14/18
--- OUTSIDE RECORDS SUMMARY | 2024-12-21 07:53 | XMS_ITS | Clinical Summary ---
Author Organization [facility] Address [address] [place] [address] Phone Care Team Providers Care Shag Truck Driver Name Role Phone Unavailable Primary Care Provider [...] of implantable loop record er Overview (08/04/2019): [facility] ILR implant 08/02/2017 (Dr. Shah) Surgical History Surgery Date Site/Laterality Comments OTHER SURGICAL HISTORY 08/02/2017 [facility] Confirm Rx ILR-Dr. Shah Medical History Medical History Date Comments SVT (supraventricular tachycardia) 12/30/2017 Status post placement of imp lantable loop recorder [facility] ILR implant 08/02/2017 (Dr Katia Shah) [...] of 2) 2016 COVID-19 Vaccine (1 - 2024-2 6 season) 2024 Influenza Vaccine (#1) 2024 Meningococcal B Vaccine Aged Out No l onger eligible based on patient's age to complete this topic Medical Devices Implanted Type Area Engineer Chief Device Identifier Shelf Expiration Date Model / Serial / Lot [facility] Confirm Rx Icm Implanted:Qty: 1 on 08/02/2017 [facility] 3500 / [id number] / Insurance JAKI
--- OUTSIDE RECORDS SUMMARY | 2024-12-21 07:54 | XMS_ITS | Clinical Summary ---
Author Organization [facility] Address [address] [id number] Care Team Providers Care Wreath Machine Operator Name Role Phone Spencer Lindo MD Primary Care Provider [phone] Social History Tobacco Use Types Packs/Day Years [...] 2016 [facility]-Zoster Vaccines (1 of 2) 2016 [id number] Vaccine (1 - 2023- season) 2024 UKY-Influenza [...] patient's age to complete this topic Insurance [facility] [place] [place] [id number] JAKI Care Teams Wreath Machine Operator Relationship Specialty Start Date End Date Spencer Lindo MD [address] [place] [address] #1 #1 FREDERIC Sheehan [phone] PCP - General 07/08/20
--- OUTSIDE RECORDS SUMMARY | 2024-12-21 07:54 | XMS_ITS | Data Portability ---
Author Organization [facility] Address [address] [place] [address] Assessment Encounter Date Assessment Date Assessment LastModified by Organization Details LastModified Time 05/22/2022 05/22/2022 56-year-old female with heartburn, lower abdominal pain, and recent hematochezia -EGD and colonoscopy scheduled for further evaluation -Continue Omeprazole -f/u 7-10 days after endoscopy [email or web address] Not available 05/22/2022 13:01:22 Plan of Treatment [...] Time Thoracic aneurysmectomy Active 2022 Rachele post [facility] & [place] 11:03:16 Problem Notes None recorded. Medical Equipment [...] Address Organization Details Last Updated DateTime 05/22/2022 17024.3 g 110/81 mm[Hg] Rachele HUGHES [facility] & [place] 05/22/2022 10:55:49 Social History None recorded. Functional [...] adsorbed 7 completed Rachele post, FREDERIC ELLEN [facility] & [place] 05/22/2022 10:57:22 Hep A, adult 9 completed Rachele post, FREDERIC HUGHES [facility] & [place] 05/22/2022 10:57:22 Hep A, adult 8 completed Rachele post, FREDERIC Schwartz LPNT [facility] & [place] 05/22/2022 10:57:22 Past Encounters Encounter ID Performer Location Encounter Start Date Encounter Closed Date Diagnosis/Indication Diagnosis SNOMED-CT Code Diagnosis ICD10 Code Diagnosis IMO Codes Diagnosis Note [id number] Odell Parker PA-C [facility] [address] [address] 05/22/2022 10:38:45 05/22/2022 11:35:25 Health Concerns Section Related Observation LastModified by Organization Detai ls LastModified Time None Recorded Concern Status LastModified by Organization Details LastModified Time None Recorded Advance Directives Directive None Recorded Payers Insurance Date Sequence Insurance Name Policy Number Policy Rueda Covered Member ID Rueda Member ID Guarantor Name 08/05/2023 1 CHARISSA-FREDERIC: JAK[place] [id number] Uday Rudd [id number] Uday Rudd Notes Date Note Type [...] foods. She reports undergoing GB evaluation at [facility] that was unremarkable. She has a history of remote sigmoidoscopy performed in 2011. She states she had a couple of polyps removed at that time. She had a single episode of hematochezia last week that she believes was due to a hemorrhoid. She has not had recurrence of bleeding. Odell Parker PA-C [id number], [place], [address], [facility] [place] - [place] & [place] 05/22/2022 13:01:37 OBGyn Episode No OBEpisode recorded.
[2024-12-21] MEDS: SODIUM CHLORIDE 0.9% 10ML SYR (RAD ONLY) 10 ML IV (08:23)
[2024-12-21] MEDS: IOPAMIDOL-370 (76%);100ML BOTTLE 75 ML IV (08:23)
== END 2024-12-21 23:59 | disposition home or self-care (01) ==
LOC: RAD 07:51
PROVIDERS: PCP Family Medicine; Visit Provider Nurse Practitioner
DX: K59.00 Constipation, unspecified (principal); K57.10 Diverticulosis of small intestine without perforation or abscess without bleeding
CPT/HCPCS: 74177; Q9967